=== PATIENT | female | born 1945 | race Caucasian/White ===

== ENCOUNTER → 2016-08-05 | Outpatient (REF) | payer MEDICARE | LOC: M LABDRAW1 11:34 | PROVIDERS: ATTEND Psychiatry & Neurology Neurology | DX: Z13.1 Encounter for screening for diabetes mellitus (principal); Z79.899 Other long term (current) drug therapy ==

== ENCOUNTER 2016-08-17 20:39 | Emergency (ER) | payer MEDICARE ==
[~2016-08-17] VITALS: Ht 152.4 cm; Wt 50.8 kg
[2016-08-17] MEDS ORDERED: PROBCAP14 PO (21:19)
[2016-08-17] MEDS ORDERED: SYNT75TA PO (21:19)
[2016-08-17] MEDS ORDERED: VITA-114 PO (21:19)
[2016-08-17] MEDS ORDERED: RANI1TAB6 PO (21:19)
[2016-08-17] MEDS ORDERED: TRAZ10TA GT (21:19)
[2016-08-17] MEDS ORDERED: COLA100C3 PO (21:19)
[2016-08-17] MEDS ORDERED: ASPI1TAB PO (21:19)
[2016-08-17] MEDS ORDERED: ATOR1TAB19 PO (21:19)
[2016-08-17] MEDS ORDERED: ALEN70SO PO (21:19)
[2016-08-17] MEDS ORDERED: FLUO20CA8 PO (21:19)
[2016-08-17] MEDS ORDERED: CALC600T57 PO (21:19)
[2016-08-17] MEDS ORDERED: MULT1TAB9 PO (21:19)
[2016-08-17] MEDS ORDERED: MOTR200T44 PO (21:19)
[2016-08-17 21:42] LABS: CALCIUM LEVEL 8.7 MG/DL (8.8-10.2); CREATININE FOR GFR 0.98 MG/DL (0.55-1.02); GLOMERULAR FILTRATION RATE 59.4 (>39)
[2016-08-17 21:42] LABS: ABG BASE EXCESS 3.5 (-2.0-2.0); ABG HCO3 26.2 MEQ/L (22.0-26.0); ABG PARTIAL PRESSURE CO2 33.7 mmHg (35.0-45.0); ABG PARTIAL PRESSURE O2 93.5 mmHg (75.0-100.0); ABG STANDARD HCO3 27.6 MEQ/L (22.0-26.0); ABG TOTAL CO2 27.3 MEQ/L (23.0-31.0); ABG pH (ARTERIAL) 7.509 UNITS (7.350-7.450)
[2016-08-17 21:43] LABS: BASO % 0.6 % (0.0-1.0); EOS # 0.2 K/mm3 (0.0-0.50); EOS % 3.2 % (0.0-3.0); LARGE UNSTAINED CELL # 0.2 K/mm3 (0.0-0.4); LARGE UNSTAINED CELL % 2.6 % (0.0-4.0); LYMPH # 1.9 K/mm3 (1.5-4.5); LYMPH % 29.1 % (24.0-44.0); MEAN CORPUSCULAR HEMOGLOBIN 31.9 pg (27.0-33.0); MEAN CORPUSCULAR HGB CONC 32.9 g/dl (32.0-36.5); MONO # 0.5 K/mm3 (0.0-0.8); MONO % 6.9 % (0.0-5.0); NEUTROPHILS # 3.7 K/mm3 (1.8-7.7); NEUTROPHILS % 57.6 % (36.0-66.0); PLATELET COUNT, AUTOMATED 173 k/mm3 (150-450); RED CELL DISTRIBUTION WIDTH 12.6 % (11.5-14.5); WHITE BLOOD COUNT 6.4 K/mm3 (4.0-10.0)
[2016-08-17 21:46] LABS: ADD MORPHOLOGY? YES
[2016-08-17 21:58] LABS: GIANT PLATELETS 1+
--- NOTE | 2016-08-17 22:10 | REPUSA ---
CT of the head Clinical history: Headache. Technique: Multiple axial CT images were obtained through the head without administration of contrast . Findings: The ventricles and sulci are symmetric bilaterally. There is no evidence of acute hemorrhag e or infarct. There is no midline shift, mass effect, or extra-axial fluid collection. The osseous st ructures are unremarkable. There is opacification of the left sphenoid sinus. The other visualized pa ranasal sinuses and mastoid air cells are clear. Impression: No acute intracranial hemorrhage or infarct. Left sphenoid sinusitis.
[2016-08-17] MEDS ORDERED: NS 1,000 ML IV ONE (23:00)
[2016-08-18 00:34] VITALS: BP 122/72
--- NOTE | 2016-08-18 08:24 | REP ---
Chest one-view HISTORY: Chest pain Comparison: 03/21/2011 The lungs are clear. The heart is normal in size. The pulmonary vasculature is normal in appearance. Impression: No acute disease. Signed by Leodan Vora MD 08/18/2016 08:16 A
== END 2016-08-18 00:35 | disposition home or self-care (01) ==
LOC: M ED 21:46
DX: E86.0 Dehydration (principal); J96.12 Chronic respiratory failure with hypercapnia

== ENCOUNTER → 2016-09-13 | Day surgery (SDC) | payer MEDICARE ==
[~2016-09-13] VITALS: Ht 152.4 cm; Wt 50.8 kg
[~2016-09-13] MED LIST: ALEN70SO PO; ALEV220T26 PO; ASPI1TAB PO; ATOR1TAB19 PO; CALC600T57 PO; CETACAINE SPRAY 20GM (FLOOR STOCK) As Ordered ONE; COLA100C3 PO; FLUO20CA8 PO; FLUO40CA PO; LIDOCAINE 2% INJ 100 MG/5 ML SDV (FOR ANES.) As Ordered ONE; LR 1,000 ML IV SCH; MOTR200T44 PO; MULT1TAB9 PO; PROBCAP14 PO; PROPOFOL 200 MG/20 ML VIAL As Ordered ONE; RANI1TAB6 PO; SYNT75TA PO; TRAZ10TA PO; VITA-114 PO; VITA100037 PO
[2016-09-13 14:27] VITALS: BP 113/56
--- NOTE | 2016-09-13 14:35 | T-ECHO ---
DATE OF PROCEDURE: 09/13/2016 PREPROCEDURE DIAGNOSIS: Patent loja ovale, transient cerebral ischemia, unspecified. POSTPROCEDURE DIAGNOSIS: Patent loja ovale, transient cerebral ischemia, unspecified. FINDINGS: Small patent foramen ovale. PROCEDURE: Transesophageal echocardiogram (ANTHONY) with saline contrast IV times three with Valsalva maneuver release. SURGEON: Lobo Rand MD DRIER BELT CONVEYOR: None. ANESTHESIA: Propofol as administered by the SUPERVISOR BRAIDING. COMPLICATIONS: None. PROCEDURE DESCRIPTION: After the patient received adequate sedation with propofol IV and after receiving Cetacaine spray to the back of the pharynx, the transesophageal echocardiogram probe (Sabina phased arrayed 2D multiplane probe) was placed into the esophagus by Dr. Rand without difficulty. Rhythm was sinus. The left and right ventricles appeared normal in size and systolic function and without regional wall motion abnormalities. Aortic valve was three-cuspid and was structurally and functionally normal. Mitral leaflets were structurally and functionally normal. Mild mitral regurgitation within normal limits of specimen. The pulmonic valve was normal. Trace pulmonic regurgitation. Tricuspid leaflets were structurally and functionally normal. No tricuspid regurgitation was identified. The region of the inferior atrial septum was high suspicious for presence of a patent foramen ovale, even though no color flow Doppler could be seen within the PFO itself. With saline contrast IV times three with Valsalva maneuver release, I was able to demonstrate on the last injection that there was indeed a small patent foramen ovale with a very small amount of saline contrast bubbles causing the PFO with Valsalva maneuver release from the right atrium to the left atrium via the PFO. No pericardial effusion. The distal aortic arch and descending thoracic aorta were visualized and showed at most mild intimal thickening, but no coarse atheroma. CONCLUSIONS: 1. Small patent foramen ovale with demonstration of a small amount of saline contrast shunting of saline contrast with Valsalva maneuver release from the left atrium into the right atrium via the PFO. 2. Otherwise, normal transesophageal echocardiogram (ANTHONY).
== END | disposition home or self-care (01) ==
LOC: M SDC 10:26
PROVIDERS: ATTEND Internal Medicine Cardiovascular Disease
DX: Q21.1 Atrial septal defect (principal); G45.9 Transient cerebral ischemic attack, unspecified; E03.9 Hypothyroidism, unspecified; E78.00 Pure hypercholesterolemia, unspecified; R01.1 Cardiac murmur, unspecified; K21.9 Gastro-esophageal reflux disease without esophagitis; R23.3 Spontaneous ecchymoses; R29.898 Other symptoms and signs involving the musculoskeletal system; M12.9 Arthropathy, unspecified; M51.26 Other intervertebral disc displacement, lumbar region; M81.0 Age-related osteoporosis without current pathological fracture; F32.9 Major depressive disorder, single episode, unspecified; R06.02 Shortness of breath; Z91.013 Allergy to seafood; Z88.5 Allergy status to narcotic agent; Z88.2 Allergy status to sulfonamides; Z79.899 Other long term (current) drug therapy; Z79.82 Long term (current) use of aspirin; Z86.73 Personal history of transient ischemic attack (TIA), and cerebral infarction without residual deficits; Z90.710 Acquired absence of both cervix and uterus; Z87.891 Personal history of nicotine dependence; Z87.81 Personal history of (healed) traumatic fracture

== ENCOUNTER 2016-11-04 21:30 | Emergency (ER) | payer MEDICARE ==
[~2016-11-04] VITALS: Ht 152.4 cm; Wt 112.0 kg
[~2016-11-04 21:30] MED LIST changes: -CETACAINE SPRAY 20GM (FLOOR STOCK) As Ordered ONE; -COLA100C3 PO; +COLA100C5 PO; -LIDOCAINE 2% INJ 100 MG/5 ML SDV (FOR ANES.) As Ordered ONE; -LR 1,000 ML IV SCH; -PROPOFOL 200 MG/20 ML VIAL As Ordered ONE; -VITA100037 PO; +VITA100067 PO
[2016-11-04 23:04] LABS: BASO # 0.1 K/mm3 (0.0-0.2); BASO % 1.1 % (0.0-1.0); EOS # 0.2 K/mm3 (0.0-0.50); EOS % 2.3 % (0.0-3.0); LARGE UNSTAINED CELL # 0.2 K/mm3 (0.0-0.4); LYMPH # 1.3 K/mm3 (1.5-4.5); LYMPH % 18.2 % (24.0-44.0); MEAN CORPUSCULAR HEMOGLOBIN 31.1 pg (27.0-33.0); MEAN CORPUSCULAR HGB CONC 32.8 g/dl (32.0-36.5); MEAN CORPUSCULAR VOLUME 94.8 fl (80.0-96.0); MONO # 0.6 K/mm3 (0.0-0.8); MONO % 8.1 % (0.0-5.0); NEUTROPHILS # 4.7 K/mm3 (1.8-7.7); NEUTROPHILS % 67.3 % (36.0-66.0); PLATELET COUNT, AUTOMATED 170 k/mm3 (150-450); RED CELL DISTRIBUTION WIDTH 12.2 % (11.5-14.5); WHITE BLOOD COUNT 6.9 K/mm3 (4.0-10.0)
[2016-11-04 23:06] LABS: INR 0.95
[2016-11-04 23:14] LABS: ANION GAP 8 MEQ/L (8-16); BLOOD UREA NITROGEN 18 MG/DL (7-18); CALCIUM LEVEL 8.7 MG/DL (8.8-10.2); CARBON DIOXIDE LEVEL 28 MEQ/L (21-32); CHLORIDE LEVEL 101 MEQ/L (98-107); CREATININE FOR GFR 0.95 MG/DL (0.55-1.02); GLOMERULAR FILTRATION RATE > 60.0 (>39); GLUCOSE, FASTING 88 MG/DL (83-110); POTASSIUM SERUM 3.9 MEQ/L (3.5-5.1); SODIUM LEVEL 137 MEQ/L (136-145)
--- NOTE | 2016-11-04 23:20 | REPUSA ---
CT of the head Clinical history: Headache. Comparison: 08/17/2016. Technique: Multiple axial CT images were obtained through the head without administration of contrast . Findings: The ventricles and sulci are symmetric bilaterally. There is no evidence of acute hemorrhag e or infarct. There is no midline shift, mass effect, or extra-axial fluid collection. The osseous st ructures are unremarkable. The visualized paranasal sinuses and mastoid air cells are clear. Impression: Negative study.
--- NOTE | 2016-11-04 23:50 | REPUSA ---
Clinicaly History: Atherosclerosis. Findings: Real-Time carotid duplex ultrasound with color Doppler flow was performed. Normal color Dop pler flow and arterial waveforms are noted. Mild atherosclerotic plaque is seen in the region of the carotid bulbs bilaterally. No elevated velocities are seen however. Antegrade blood flow is seen in t he vertebral arteries bilaterally. There is no evidence of subclavian steal. The right ICA/CCA ratio measures 0.87, and the left measures 0.90. Impression: No evidence of hemodynamically significant stenosis in the carotid arterial system bilate rally. Mild atherosclerotic plaque is seen in the region of the carotid bulbs bilaterally.
[2016-11-05 01:16] VITALS: BP 148/65
== END 2016-11-05 01:10 | disposition home or self-care (01) ==
LOC: M ED 21:30
DX: R51 Headache (principal); Z86.73 Personal history of transient ischemic attack (TIA), and cerebral infarction without residual deficits; Z88.2 Allergy status to sulfonamides; Z88.6 Allergy status to analgesic agent; Z88.5 Allergy status to narcotic agent; Z91.013 Allergy to seafood; Z79.82 Long term (current) use of aspirin; Z79.899 Other long term (current) drug therapy

== ENCOUNTER → 2016-11-28 | Outpatient (REF) | payer MEDICARE ==
[~2016-11-28] MED LIST changes: +FISH1000 PO; +PANT40TA2 PO; +PLAV1TAB2 PO; +SUCR1TA PO; +VITMTA PO
[2016-11-28 12:21] LABS: BASO % 1.1 % (0.0-1.0); EOS # 0.2 K/mm3 (0.0-0.50); LARGE UNSTAINED CELL # 0.1 K/mm3 (0.0-0.4); LARGE UNSTAINED CELL % 1.9 % (0.0-4.0); LYMPH % 24.9 % (24.0-44.0); MEAN CORPUSCULAR HEMOGLOBIN 31.2 pg (27.0-33.0); MEAN CORPUSCULAR HGB CONC 32.6 g/dl (32.0-36.5); MEAN CORPUSCULAR VOLUME 95.7 fl (80.0-96.0); MONO # 0.3 K/mm3 (0.0-0.8); MONO % 7.6 % (0.0-5.0); NEUTROPHILS # 2.3 K/mm3 (1.8-7.7); NEUTROPHILS % 60.5 % (36.0-66.0); PLATELET COUNT, AUTOMATED 154 k/mm3 (150-450); RED CELL DISTRIBUTION WIDTH 12.7 % (11.5-14.5); WHITE BLOOD COUNT 3.7 K/mm3 (4.0-10.0)
[2016-11-28 12:23] LABS: ADD MORPHOLOGY? YES
[2016-11-28 12:38] LABS: ANION GAP 7 MEQ/L (8-16); BLOOD UREA NITROGEN 25 MG/DL (7-18); CALCIUM LEVEL 9.2 MG/DL (8.8-10.2); CARBON DIOXIDE LEVEL 29 MEQ/L (21-32); CHLORIDE LEVEL 107 MEQ/L (98-107); CREATININE FOR GFR 0.91 MG/DL (0.55-1.02); GLOMERULAR FILTRATION RATE > 60.0 (>39); GLUCOSE, FASTING 87 MG/DL (83-110); POTASSIUM SERUM 4.5 MEQ/L (3.5-5.1); SODIUM LEVEL 143 MEQ/L (136-145)
== END ==
LOC: M LABDRAW1 11:48
PROVIDERS: ATTEND Internal Medicine Cardiovascular Disease
DX: Q21.1 Atrial septal defect (principal); G45.9 Transient cerebral ischemic attack, unspecified

== ENCOUNTER 2016-12-16 14:30 | Inpatient (IN) | payer MEDICARE ==
[~2016-12-16] VITALS: Ht 152.4 cm; Wt 51.4 kg
[~2016-12-16 14:30] MED LIST changes: -FISH1000 PO; -PANT40TA2 PO; -PLAV1TAB2 PO; -SUCR1TA PO; -VITMTA PO
[2016-12-16] MEDS ORDERED: PLAV1TAB2 PO (14:51)
[2016-12-16] MEDS ORDERED: FISH1000 PO (14:51)
[2016-12-16] MEDS ORDERED: NS 1,000 ML IV SCH ×2 (15:12→21:30)
[2016-12-16] MEDS ORDERED: PANTOPRAZOLE 40MG INJ (PROTONIX) (C9113) IV ONE (15:15)
[2016-12-16 15:33] LABS: BASO % 0.7 % (0.0-1.0); EOS # 0.2 K/mm3 (0.0-0.50); EOS % 3.5 % (0.0-3.0); LARGE UNSTAINED CELL # 0.2 K/mm3 (0.0-0.4); LARGE UNSTAINED CELL % 3.1 % (0.0-4.0); LYMPH # 1.4 K/mm3 (1.5-4.5); LYMPH % 27.5 % (24.0-44.0); MEAN CORPUSCULAR HEMOGLOBIN 30.9 pg (27.0-33.0); MEAN CORPUSCULAR HGB CONC 33.1 g/dl (32.0-36.5); MEAN CORPUSCULAR VOLUME 93.2 fl (80.0-96.0); MONO # 0.4 K/mm3 (0.0-0.8); MONO % 7.7 % (0.0-5.0); NEUTROPHILS # 2.7 K/mm3 (1.8-7.7); NEUTROPHILS % 57.5 % (36.0-66.0); PLATELET COUNT, AUTOMATED 152 k/mm3 (150-450); RED CELL DISTRIBUTION WIDTH 12.8 % (11.5-14.5); WHITE BLOOD COUNT 4.7 K/mm3 (4.0-10.0)
[2016-12-16] MEDS: PANTOPRAZOLE SODIUM 40 MG in D5W MINI-BAG PLUS 50 ML IV SCH ×3 (15:52→20:56)
[2016-12-16 16:00] LABS: ALBUMIN/GLOBULIN RATIO 0.94 (1.00-1.93); ALKALINE PHOSPHATASE 58 U/L (45-117); ALT/SGPT 30 U/L (12-78); ANION GAP 8 MEQ/L (8-16); AST/SGOT 26 U/L (15-37); BILIRUBIN,DIRECT < 0.1 MG/DL (0.0-0.2); BLOOD UREA NITROGEN 24 MG/DL (7-18); CALCIUM LEVEL 8.2 MG/DL (8.8-10.2); CARBON DIOXIDE LEVEL 26 MEQ/L (21-32); CHLORIDE LEVEL 107 MEQ/L (98-107); CREATININE FOR GFR 0.86 MG/DL (0.55-1.02); GLOMERULAR FILTRATION RATE > 60.0 (>39); GLUCOSE, FASTING 91 MG/DL (83-110); POTASSIUM SERUM 4.3 MEQ/L (3.5-5.1); SODIUM LEVEL 141 MEQ/L (136-145); TOTAL PROTEIN 6.2 GM/DL (6.4-8.2)
[2016-12-16 16:03] LABS: BILIRUBIN,TOTAL 0.2 MG/DL (0.2-1.0)
[2016-12-16] MEDS ORDERED: VITMTA PO (17:03)
[2016-12-16] MEDS ORDERED: DOCUSATE SODIUM 100 MG CAP PO PRN (21:30)
[2016-12-16] MEDS ORDERED: ACETAMINOPHEN TAB 650MG DOSE (2X325MG) PO PRN (21:45)
[2016-12-16] MEDS ORDERED: ONDANSETRON 4MG/2ML VIAL (J2405) IV PRN (21:45)
[2016-12-16] MEDS: SUCRALFATE 1 GM TAB PO SCH (22:33)
[2016-12-16] MEDS: ATORVASTATIN 10 MG TAB PO SCH (22:33)
[2016-12-16] MEDS: traZODone 100 MG TAB PO SCH (22:33)
[2016-12-17] VITALS (9 sets, daily range): BP systolic 107–143; BP diastolic 51–65
[2016-12-17] MEDS: PANTOPRAZOLE SODIUM 40 MG in D5W MINI-BAG PLUS 50 ML IV SCH ×5 (00:12→22:05)
[2016-12-17 03:27] LABS: MEAN CORPUSCULAR HEMOGLOBIN 31.8 pg (27.0-33.0); MEAN CORPUSCULAR HGB CONC 34.2 g/dl (32.0-36.5); RED CELL DISTRIBUTION WIDTH 13.2 % (11.5-14.5); WHITE BLOOD COUNT 4.9 K/mm3 (4.0-10.0)
[2016-12-17 04:01] LABS: ALBUMIN 2.9 GM/DL (3.2-5.2); ALBUMIN/GLOBULIN RATIO 0.97 (1.00-1.93); ALKALINE PHOSPHATASE 49 U/L (45-117); ALT/SGPT 29 U/L (12-78); ANION GAP 6 MEQ/L (8-16); AST/SGOT 25 U/L (15-37); BILIRUBIN,TOTAL 0.3 MG/DL (0.2-1.0); BLOOD UREA NITROGEN 15 MG/DL (7-18); CALCIUM LEVEL 7.6 MG/DL (8.8-10.2); CARBON DIOXIDE LEVEL 26 MEQ/L (21-32); CHLORIDE LEVEL 114 MEQ/L (98-107); CREATININE FOR GFR 0.85 MG/DL (0.55-1.02); GLOMERULAR FILTRATION RATE > 60.0 (>39); GLUCOSE, FASTING 84 MG/DL (83-110); MAGNESIUM LEVEL 1.9 MG/DL (1.8-2.4); SODIUM LEVEL 146 MEQ/L (136-145); T UPTAKE 40 % (30-39); THYROXINE (T4) 7.6 UG/DL (4.5-12.0); TOTAL PROTEIN 5.9 GM/DL (6.4-8.2)
[2016-12-17] MEDS: LEVOTHYROXINE 75MCG TABLET (0.075MG) PO SCH (06:07)
[2016-12-17] MEDS: SUCRALFATE 1 GM TAB PO SCH ×3 (06:07→22:04)
--- NOTE | 2016-12-17 07:39 | HPE ---
DATE OF ADMISSION: 12/16/2016 PRIMARY CARE PROVIDER: Dr. Fisher GENERAL SURGEON: Dr Taylor, covered by Dr. Winn NEUROLOGIST: Dr. Leon SUGAR GRINDER: Dr. Rand HISTORY OF PRESENT ILLNESS: This is a 71-year-old female patient with underlying medical history of transient ischemic attack (TIA) in April 2016 that was initially thought to be questionable patent foramen ovale, but after cardiac catheterization was found to be negative. The patient on aspirin and Plavix. Also underlying medical history of hypothyroidism, depression, vitamin D deficiency, genital herpes, thrombocytopenia, external hemorrhoids, constipation, osteoarthritis. The patient reported for the past three days has been having intermittent epigastric pain. Furthermore, for the past three days, the patient has a total of two episodes of large bowel movements that are black and with melena and reported lightheadedness and weak. Subsequently presented to the emergency room and found to be have anemia with hemoglobin of 8.6, baseline of 13.1. The patient also reported carotid artery disease. Subsequently the patient was consented for transfusion and transfused one unit of packed red blood cells (PRBC). The patient remained hemodynamically stable. IV fluids were given. Denies history of congestive heart failure (CHF). Only one episode of dark bowel movement over the last 24 hours. ALLERGIES: - CRABS - HYDROCODONE - SULFA DRUGS PAST MEDICAL HISTORY: 1. Hypothyroidism. 2. Depression. 3. Vitamin D deficiency. 4. Genital herpes. 5. Thrombocytopenia. 6. TIA. 7. External hemorrhoids. 8. Constipation. 9. Osteoarthritis. 10. Carotid artery stenosis. PAST SURGICAL HISTORY: 1. Ovarian cyst. 2. Hysterectomy. 3. Bone graft. 4. Juan placement in the leg secondary to fracture with juan removal and then replaced. 5. Appendectomy. 6. Lumpectomy of the breast. FAMILY HISTORY: Father with congestive heart failure, age 81, and diabetes. Mother with breast cancer. SOCIAL HISTORY: The patient denies history of smoking or excessive alcohol use. REVIEW OF SYSTEMS: Reported epigastric abdominal pain and lightheadedness. All other review of systems were negative. HOME MEDICATIONS: - alendronate 70 mg by mouth weekly - aspirin 81 mg by mouth daily - Lipitor 10 mg by mouth every evening - calcium with vitamin D by mouth twice a day - Plavix 75 mg by mouth daily - Colace 100 mg by mouth daily as needed - fish oil one tablet by mouth daily - fluoxetine 60 mg by mouth daily - Synthroid 75 mcg by mouth daily - multivitamin by mouth daily - trazodone 100 mg by mouth at bedtime - vitamin D 2000 units by mouth daily PHYSICAL EXAMINATION: VITAL SIGNS: Temperature 97.8. Pulse 69. Respirations 16. Blood pressure 111/55. Pulse oximetry 97% on room air. GENERAL: Patient alert and oriented times three in no acute distress. HEENT: Normocephalic, atraumatic. PULMONARY: Bilateral clear to auscultation. CARDIAC: Regular rate and rhythm. Normal S1, S2. ABDOMEN: Soft. Nontender. Positive bowel sounds. EXTREMITIES: No clubbing, cyanosis or edema. NEUROLOGIC: No focal deficits. LABORATORIES: WBC 4.7, hemoglobin/hematocrit 8.6/26, platelets 152. Chemistries: Sodium 141, potassium 4.3, chloride 107, bicarbonate 26, BUN 24, creatinine 0.86. Cardiac enzymes negative times one. Lipase negative. ASSESSMENT AND PLAN: This is a 71-year-old female patient with underlying medical history of TIA, carotid artery stenosis, hypothyroidism, depression, vitamin D deficiency genital herpes, thrombocytopenia, constipation, external hemorrhoids, and osteoarthritis admitted for acute blood loss anemia secondary to upper GI bleed. PROBLEMS: 1. Acute blood loss anemia secondary to upper GI bleed, likely secondary to gastric ulcer. Consulted general surgery Dr. Winn. Protonix drip. Transfuse one unit of PRBC. Serial H and H. Holding aspirin and Plavix. Transfuse as needed. Monitor H and H. Orthostatic vital signs. IV fluid for gentle hydration. Clear liquid diet. Further management as per general surgery. Carafate. 2. Recent history of TIA. Holding aspirin and Plavix given patient with acute blood loss anemia. Will monitor closely. Continue statin. 3. Carotid artery stenosis. Recent carotid Doppler done. Consider outpatient referral for vascular surgery. Continue statin. Holding aspirin and Plavix given acute blood loss anemia. 4. Hypothyroidism. Continue Synthroid. Followup thyroid panel. 5. Depression. Continue current medications. 6. Osteoarthritis. Supportive care. Pain medication is ordered. 7. Dyslipidemia. Continue statin. 8. Constipation. Continue current medication. 9. Epigastric pain, likely secondary to gastric ulcer. Carafate and Protonix. General surgery consulted. Followup H and H. 10. Deep vein thrombosis (DVT) prophylaxis. Sequential compression device. DISPOSITION: Pending surgical consultation. Monitor H and H. Clinically improving.
[2016-12-17] MEDS: FLUoxetine 20 MG CAP PO SCH (08:40)
[2016-12-17] MEDS: VITAMIN D 1,000 INTERNATIONAL UNITS TABLET PO SCH (08:40)
[2016-12-17] MEDS: MULTIVITAMINS/MINERALS THERAP 1 TAB PO SCH (08:40)
[2016-12-17] MEDS: SENOKOT S TAB PO SCH ×2 (08:41→22:06)
[2016-12-17] MEDS: OMEGA-3 1050MG CAPSULE PO SCH (08:41)
--- NOTE | 2016-12-17 10:01 | ECGEPIP ---
Stationary ECG Study 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 Somewhat slow precordial R-wave progression; rule out prior septal injury. Nonspecific ST/T-wave abnormalities. No prior tracing for comparison. Clinical correlation advised. Electronically Signed On 12-17-2016 10:01:45 EDT by Wayne Spicer
--- NOTE | 2016-12-17 12:27 | IPNPDOC ---
Subjective Date Seen The patient was seen on 12/17/16. Subjective Chief Complaint/HPI The patient is a 71-year-old female admitted with a reason for visit of Upper Gi Bleed. Events since last encounter No dizziness this am , no light headedness , did not have any bowel movement since yesterday morning , no vomiting , no abdominal pain. Objective Physical Examination General Exam: Positive: Alert, Cooperative, No Acute Distress Eye Exam: Positive: PERRLA, Conjunctiva & lids normal, EOMI, Negative: Sclera icteric ENT Exam: Positive: Atraumatic, Mucous membr. moist/pink, Pharynx Normal Neck Exam: Positive: Supple, Other (left carotid bruit present), Negative: JVD, thyromegaly Chest Exam: Positive: Clear to auscultation, Normal air movement Heart Exam: Positive: Rate Normal, Regular Rhythm, Normal S1, Normal S2, Murmurs, Negative: Rubs Telemetry: Positive: No significant arrhythmia Abdomen Exam: Positive: Normal bowel sounds, Soft, Negative: Tenderness, Hepatospenomegaly Extremity Exam: Positive: Normal pulses, Negative: Clubbing, Cyanosis, Edema Skin Exam: Positive: Nl turgor and temperature, Negative: Rash, Breakdown Assessment /Plan Problems (1) GIB (gastrointestinal bleeding) Status: Acute Problem Text: possible related to plavix and ibuprofen . hh stable appropriate response to 1 unit of prbc transfusion. Seems like bleeding has stopped will continue with ppi , advance diet. monitor hh. stop ivf. Has been seen by Dr Winn . (2) Acute blood loss anemia Status: Acute Problem Text: from gib , received 1 unit of PRBC. continue to monitor HH (3) Patent foramen ovale Status: Chronic Problem Text: Had cardiac cath done by Dr Tatum on december 03 and was told that there was no "hole" (4) History of TIA (transient ischemic attack) Status: Chronic (5) Hyperlipidemia Status: Chronic Problem Text: continue statin (6) Hypothyroid Status: Chronic (7) Depression Status: Chronic (8) Chronic shoulder pain Status: Chronic (9) Symptomatic anemia Status: Acute Problem Text: HH dropped by 5 points from 1 month ago received 1 unit of prbc . (10) Carotid artery bruit Status: Chronic Problem Text: on the left. Has some carotid obstruction but was told it does not need surgery at this point. Plan/VTE VTE Prophylaxis Ordered?: Yes VS, I&O, 24H, [facility] Vital Signs/I&O Vital Signs Date Time Temp Pulse Resp B/P (MAP) Pulse Ox O2 Delivery O2 Flow Rate FiO2 12/17/16 08:00 98.5 66 18 107/53 (71) 96 Room Air I&O- Last 24 Hours up to 6 AM 12/17/16 05:59 Intake Total 525 ml Output Total 200 ml Balance 325 ml Laboratory Data 24H LABS Laboratory Tests 2 12/16/16 15:16: White Blood Count 4.7, Red Blood Count 2.79L, Hemoglobin 8.6L, Hematocrit 26.0L , Mean Corpuscular Volume 93.2, Mean Corpuscular Hemoglobin 30.9, Mean Corpuscular Hemoglobin Concent 33.1, Red Cell Distribution Width 12.8, Platelet Count 152, Neutrophils (%) (Auto) 57.5, Lymphocytes (%) (Auto) 27.5, Monocytes ( %) (Auto) 7.7H, Eosinophils (%) (Auto) 3.5H, Basophils (%) (Auto) 0.7, Neutrophils # (Auto) 2.7, Lymphocytes # (Auto) 1.4L, Monocytes # (Auto) 0.4, Eosinophils # (Auto) 0.2, Basophils # (Auto) 0.0, Large Unclassified Cells % 3.1 , Large Unclassified Cells # 0.2, Prothrombin Time 13.3, Prothromb Time International Ratio 1.00, Activated Partial Thromboplast Time 27.9, Anion Gap 8 , Glomerular Filtration Rate > 60.0, Calcium Level 8.2L, Aspartate Amino Transf (AST/SGOT) 26, Alanine Aminotransferase (ALT/SGPT) 30, Alkaline Phosphatase 58, Total Bilirubin 0.2, Direct Bilirubin < 0.1, Total Creatine Kinase 57, Creatine Kinase MB 1.2, Creatine Kinase MB Relative Index 2.10, Troponin I < 0.02, Total Protein 6.2L, Albumin 3.0L, Albumin/Globulin Ratio 0.94L, Lipase 386 12/17/16 03:11: Anion Gap 6L, Glomerular Filtration Rate > 60.0, Calcium Level 7.6L, Aspartate Amino Transf (AST/SGOT) 25, Alanine Aminotransferase (ALT/SGPT) 29, Alkaline Phosphatase 49, Total Bilirubin 0.3, Total Protein 5.9L, Albumin 2.9L, Albumin/ Globulin Ratio 0.97L, Blood Urea Nitrogen 15, Creatinine 0.85, Sodium Level 146H , Potassium Level 4.0, Chloride Level 114H, Carbon Dioxide Level 26, Magnesium Level 1.9, Thyroid Stimulating Hormone (TSH) 6.830H, Free Thyroxine Index 3.0, Thyroxine (T4) 7.6, Triiodothyronine (T3) Uptake 40H CBC/BMP Laboratory Tests 12/16/16 15:16 Red Blood Count 2.79 L, Mean Corpuscular Volume 93.2, Mean Corpuscular Hemoglobin 30.9, Mean Corpuscular Hemoglobin Concent 33.1, Red Cell Distribution Width 12.8, Neutrophils (%) (Auto) 57.5, Lymphocytes (%) (Auto) 27.5, Monocytes (%) (Auto) 7.7 H, Eosinophils (%) (Auto) 3.5 H, Basophils (%) ( Auto) 0.7, Neutrophils # (Auto) 2.7, Lymphocytes # (Auto) 1.4 L, Monocytes # ( Auto) 0.4, Eosinophils # (Auto) 0.2, Basophils # (Auto) 0.0 12/16/16 21:45 12/17/16 03:11 Red Blood Count 3.41 L, Mean Corpuscular Volume 93.0, Mean Corpuscular Hemoglobin 31.8, Mean Corpuscular Hemoglobin Concent 34.2, Red Cell Distribution Width 13.2, Calcium Level 7.6 L, Aspartate Amino Transf (AST/SGOT) 25, Alanine Aminotransferase (ALT/SGPT) 29, Alkaline Phosphatase 49, Total Bilirubin 0.3, Total Protein 5.9 L, Albumin 2.9 L 12/17/16 08:36 MONTY CORBIN MD Dec 17, 2016 12:27
--- NOTE | 2016-12-17 19:17 | ECGEPIP ---
Stationary ECG Study [facility] - [facility] Test Date: 2016-12-16 Pat Name: BILLIE BRAVO Department: Room: - Gender: F Character Impersonator: shiela : 1945 Requested By: Shahab Knott Order Number: [id number] Reading MD: William Ch Measurements Intervals [place] Rate: 61 P: 66 [place]: 143 QRS: -9 QRSD: 76 T: 34 QT: 426 QTc: 430 Interpretive Statements SINUS RHYTHM LEFTWARD AXIS DELAYED R WAVE PROGRESSION NO OLD ECG FOR COMPARISON Electronically Signed On 12-17-2016 19:16:55 EDT by William Ch
[2016-12-17] MEDS: traZODone 100 MG TAB PO SCH (22:04)
[2016-12-17] MEDS: ATORVASTATIN 10 MG TAB PO SCH (22:04)
[2016-12-18 04:00] VITALS: BP 119/56
[2016-12-18 04:15] LABS: MEAN CORPUSCULAR HEMOGLOBIN 31.5 pg (27.0-33.0); MEAN CORPUSCULAR HGB CONC 34.2 g/dl (32.0-36.5); MEAN CORPUSCULAR VOLUME 92.3 fl (80.0-96.0); RED CELL DISTRIBUTION WIDTH 13.6 % (11.5-14.5); WHITE BLOOD COUNT 5.2 K/mm3 (4.0-10.0)
[2016-12-18 04:39] LABS: ANION GAP 8 MEQ/L (8-16); BLOOD UREA NITROGEN 11 MG/DL (7-18); CARBON DIOXIDE LEVEL 25 MEQ/L (21-32); CHLORIDE LEVEL 115 MEQ/L (98-107); CREATININE FOR GFR 0.77 MG/DL (0.55-1.02); GLOMERULAR FILTRATION RATE > 60.0 (>39); GLUCOSE, FASTING 87 MG/DL (83-110); POTASSIUM SERUM 3.7 MEQ/L (3.5-5.1); SODIUM LEVEL 148 MEQ/L (136-145)
[2016-12-18 04:40] LABS: ALBUMIN 2.9 GM/DL (3.2-5.2); ALKALINE PHOSPHATASE 49 U/L (45-117); ALT/SGPT 30 U/L (12-78); AST/SGOT 27 U/L (15-37); BILIRUBIN,TOTAL 0.2 MG/DL (0.2-1.0); CALCIUM LEVEL 7.9 MG/DL (8.8-10.2); MAGNESIUM LEVEL 2.4 MG/DL (1.8-2.4); TOTAL PROTEIN 5.8 GM/DL (6.4-8.2)
[2016-12-18] MEDS: LEVOTHYROXINE 75MCG TABLET (0.075MG) PO SCH (05:50)
[2016-12-18] MEDS: SUCRALFATE 1 GM TAB PO SCH (05:50)
[2016-12-18] MEDS: PANTOPRAZOLE SODIUM 40 MG in D5W MINI-BAG PLUS 50 ML IV SCH ×2 (05:50→08:58)
[2016-12-18 08:00] VITALS: BP 115/57
[2016-12-18] MEDS: OMEGA-3 1050MG CAPSULE PO SCH (08:58)
[2016-12-18] MEDS: SENOKOT S TAB PO SCH (08:58)
[2016-12-18] MEDS: FLUoxetine 20 MG CAP PO SCH (08:59)
[2016-12-18] MEDS: VITAMIN D 1,000 INTERNATIONAL UNITS TABLET PO SCH (08:59)
[2016-12-18] MEDS: MULTIVITAMINS/MINERALS THERAP 1 TAB PO SCH (08:59)
[2016-12-18] MEDS ORDERED: INFLUENZA VIRUS VACCINE HIGH DOSE 0.5 ML SYRINGE (90662) IM ONE (09:00)
[2016-12-18] MEDS ORDERED: PANT40TA2 PO (10:49)
[2016-12-18] MEDS ORDERED: SUCR1TA PO (10:49)
--- NOTE | 2016-12-18 12:23 | DSES ---
DATE OF ADMISSION: 12/16/2016 DATE OF DISCHARGE: 12/18/2016 [facility] DIS[facility] DIAGNOSES: 1. Gastrointestinal (GI) bleeding thought to be due to Plavix use and ibuprofen use with possible acute gastritis. 2. Acute blood loss anemia requiring one unit of blood transfusion. 3. Hyperlipidemia. 4. Hypothyroid. 5. Depression. 6. Symptomatic anemia. 7. Chronic shoulder pain. 8. History of transient ischemic attack (TIA). 9. Probable foramen ovale. However, cardiac catheterization did not show any patency. 10. Presence of carotid artery bruit. DISCHARGE MEDICATIONS: - pantoprazole 40 mg by mouth twice a day - sucralfate 1 gram by mouth every eight hours - alendronate 70 mg by mouth every week - aspirin 81 mg by mouth daily - atorvastatin 10 mg by mouth daily - calcium with vitamin D3 one tablet by mouth twice a day - Colace 500 mg by mouth daily - fish oil 1000 mg by mouth daily - fluoxetine 60 mg by mouth daily - Synthroid 75 mcg by mouth daily - multivitamin one tablet by mouth daily - trazodone 100 mg by mouth at bedtime - vitamin D 2000 units by mouth daily HOSPITAL COURSE: This is a 71-year-old female who presented to the hospital with 3-4 days history of lightheadedness, dizziness, progressively increasing shortness of breath, weakness and tiredness. The patient was found to have a hemoglobin of 8.6 which was about five points lower to a value which was done one month prior. The patient also had complained of black colored stool for one or two days. Hemoccult was positive. The patient was diagnosed with gastrointestinal bleeding and was admitted. As per the patient, about three weeks prior, she was started on Plavix which was a new medication for her and for the past one week, she was having headaches so she has been taking about 600 mg of ibuprofen everyday. She also had mild epigastric discomfort. She received one unit of blood transfusion with appropriate response in blood count. The patient's hemoglobin and hematocrit was checked over the next 24 hours which remained stable. The patient did have one semi-solid bowel movement but no lulú melena or hematochezia. The patient was started on a regular diet which she tolerated well and she was then switched from IV pantoprazole to oral pantoprazole. At present, the patient does not have any complaints. Her symptoms have resolved. Vital signs are stable and she is functioning at her baseline. PHYSICAL EXAMINATION: VITAL SIGNS: Temperature 98.5, pulse 62, respiratory rate 18, blood pressure 115/57, pulse oximetry 97% on room air. GENERAL: The patient is awake, alert, and oriented times three, laying down in bed, in no acute distress. HEENT: Normocephalic, atraumatic. Moist mucous membranes. Anicteric eyes. CHEST: Clear to auscultation. CARDIOVASCULAR: S1, S2, regular. No rub, murmur, or gallop. ABDOMEN: Soft, nontender. Bowel sounds present. EXTREMITIES: No edema. LABORATORY DATA: WBC 5.2, hemoglobin 10.2, platelets 145. Sodium 148, potassium 3.8, chloride 115, bicarbonate 25, BUN 11, creatinine 0.7, glucose 87, calcium 7.9. Liver function tests are normal. TSH is 6.83. Coagulation studies are normal. DISPOSITION: The patient is discharged home in a stable condition. DISCHARGE INSTRUCTIONS: The patient is to followup with primary care provider in one week. Regular diet. Activity as tolerated.
--- NOTE | 2016-12-18 20:48 | CR ---
DATE OF CONSULTATION: 12/17/2016 CHIEF COMPLAINT: Gastrointestinal (GI) bleed. HISTORY OF PRESENT ILLNESS: Patient is a 71-year-old female with a history of recent TIA back in April who presents to the emergency room on aspirin and Plavix after having a couple episodes of large black bowel movements. She also has been slightly lightheaded and weak. She came into the emergency room and found to be anemic with a hemoglobin of 8.6 with a normal baseline of 13.1. She was given 1 unit of packed red blood cells and admitted to the floor and I was called to evaluate. Since admission to the hospital, she has not had any more bowel movements. Her hemoglobin has stabilized out after the 1 unit of blood and she denies any other problems. She has been using Motrin for the past week which is also new for her. Denies any other problems with acid reflux or heartburn. No previous upper endoscopy. No problems with nausea or vomiting or abdominal pain and no bright red blood in her stool. PAST MEDICAL HISTORY: Hypothyroidism, depression, TIA, thrombocytopenia, external hemorrhoids, constipation, osteoarthritis, carotid artery stenosis, vitamin D deficiency. PAST SURGICAL HISTORY: Ovarian cyst removal, hysterectomy, bone graft, fracture repair of the femur, appendectomy and a breast lumpectomy. ALLERGIES: HYDROCODONE and SULFA. MEDICATIONS: Please see medication reconciliation. SOCIAL HISTORY: Denies any drug, alcohol, or tobacco abuse. REVIEW OF SYSTEMS: Pertinent positives and negatives as stated in HPI. PHYSICAL EXAMINATION: General: Alert and oriented times three. No acute distress. Vital signs: Temperature 98.5, pulse 66, respirations 18, blood pressure 107/53, pulse oximetry 96% on room air. HEENT: Pupils equally round and reactive to light and accommodation. Heart: S1, S2, regular rate and rhythm. Lungs: Clear to auscultation bilaterally. Abdomen: Soft, nontender, nondistended. Bowel sounds positive. Extremities: No clubbing, cyanosis or edema. LABORATORY DATA: White count of 4.7, hemoglobin 8.6 on admission, up to 9.7 after 1 unit of blood, and up to 10.8 this morning. INR was 1, potassium 4.3, creatinine 0.86, magnesium 1.9. ASSESSMENT/PLAN: The patient is a 71-year-old female with a history of melanotic stools likely secondary to an upper GI bleed from gastritis versus gastric ulcer. Recommendation at this time is to continue with a PPI twice a day as well as Carafate. We will continue to monitor her during her hospital stay with serial hemoglobins and hematocrits. No need for upper endoscopy at this time since it would be just diagnostic rather than therapeutic and if she shows signs of continued bleeding and requires multiple transfusions then we will consider endoscopy at that time.
== END 2016-12-18 12:50 | disposition home or self-care (01) | DRG 813 ==
LOC: M ED 14:30 → M ED INP 21:32 → M PCU 23:58
PROVIDERS: ADMIT Hospitalist; ATTEND Internal Medicine Nephrology
PROC: 30233N1 Transfusion of Nonautologous Red Blood Cells into Peripheral Vein, Percutaneous Approach (ICD-10-PCS; principal; 2016-12-16)
DX: D68.32 Hemorrhagic disorder due to extrinsic circulating anticoagulants (principal); K29.01 Acute gastritis with bleeding; D62 Acute posthemorrhagic anemia; E78.5 Hyperlipidemia, unspecified; E03.9 Hypothyroidism, unspecified; R09.89 Other specified symptoms and signs involving the circulatory and respiratory systems; K59.00 Constipation, unspecified; F32.9 Major depressive disorder, single episode, unspecified; Z86.73 Personal history of transient ischemic attack (TIA), and cerebral infarction without residual deficits; Z79.82 Long term (current) use of aspirin; Z79.899 Other long term (current) drug therapy; Z79.02 Long term (current) use of antithrombotics/antiplatelets; Z88.2 Allergy status to sulfonamides; Z88.5 Allergy status to narcotic agent; Z91.013 Allergy to seafood; Z90.710 Acquired absence of both cervix and uterus; Z83.3 Family history of diabetes mellitus; Z80.3 Family history of malignant neoplasm of breast; Z82.49 Family history of ischemic heart disease and other diseases of the circulatory system; T45.515A Adverse effect of anticoagulants, initial encounter

== ENCOUNTER → 2017-01-02 | Outpatient (REF) | payer MEDICARE ==
[~2017-01-02] MED LIST changes: +FISH1000 PO; +PANT40TA2 PO; +PLAV1TAB2 PO; +SUCR1TA PO; +VITMTA PO
[2017-01-02 16:27] LABS: BASO % 0.7 % (0.0-1.0); EOS # 0.1 K/mm3 (0.0-0.50); EOS % 1.8 % (0.0-3.0); LARGE UNSTAINED CELL # 0.1 K/mm3 (0.0-0.4); LARGE UNSTAINED CELL % 2.4 % (0.0-4.0); LYMPH # 1.2 K/mm3 (1.5-4.5); LYMPH % 25.8 % (24.0-44.0); MEAN CORPUSCULAR HEMOGLOBIN 31.1 pg (27.0-33.0); MEAN CORPUSCULAR VOLUME 94.2 fl (80.0-96.0); MONO # 0.5 K/mm3 (0.0-0.8); MONO % 11.4 % (0.0-5.0); NEUTROPHILS # 2.4 K/mm3 (1.8-7.7); NEUTROPHILS % 57.9 % (36.0-66.0); PLATELET COUNT, AUTOMATED 183 k/mm3 (150-450); WHITE BLOOD COUNT 4.1 K/mm3 (4.0-10.0)
== END ==
LOC: M LABDRAW1 15:53
PROVIDERS: ATTEND Family Medicine
DX: K92.2 Gastrointestinal hemorrhage, unspecified (principal)

== ENCOUNTER → 2017-02-01 | Outpatient (REF) | payer MEDICARE | LOC: M LAB REF 12:28 | PROVIDERS: ATTEND Ophthalmology | DX: H02.834 Dermatochalasis of left upper eyelid (principal) ==

== ENCOUNTER → 2017-02-06 | Outpatient (REF) | payer MEDICARE ==
[2017-02-06 18:15] LABS: FOLATE > 24.0 NG/ML; VITAMIN B12 LEVEL 949 PG/ML
[2017-02-06 18:17] LABS: TOTAL PROTEIN 7.2 GM/DL (6.4-8.2)
[2017-02-07 11:43] LABS: ALBUMIN % 56.9 % (55.8-66.1); GAMMA GLOBULIN % 13.4 % (11.1-18.8)
[2017-02-15 00:06] LABS: SJOGREN'S ANTI SS-A <0.2 AI (0.0-0.9); SJOGREN'S ANTI SS-B <0.2 AI (0.0-0.9); VITAMIN E LEVEL 18.4 mg/L (6.5-21.5)
== END ==
LOC: M LABDRAW1 15:36
PROVIDERS: ATTEND Psychiatry & Neurology Neurology
DX: R51 Headache (principal); E11.9 Type 2 diabetes mellitus without complications

== ENCOUNTER → 2017-07-17 | Outpatient (REF) | payer MEDICARE ==
[2017-07-17 19:16] LABS: ANION GAP 3 MEQ/L (8-16); BLOOD UREA NITROGEN 20 MG/DL (7-18); CARBON DIOXIDE LEVEL 28 MEQ/L (21-32); CHLORIDE LEVEL 109 MEQ/L (98-107); CREATININE FOR GFR 0.86 MG/DL (0.55-1.30); GLOMERULAR FILTRATION RATE > 60.0 (>39); GLUCOSE, FASTING 81 MG/DL (70-100); POTASSIUM SERUM 4.4 MEQ/L (3.5-5.1); SODIUM LEVEL 140 MEQ/L (136-145)
[2017-07-17 19:20] LABS: HEMATOCRIT 39.9 % (36.0-47.0); HEMOGLOBIN 12.8 g/dl (12.0-15.5); MEAN CORPUSCULAR HEMOGLOBIN 30.3 pg (27.0-33.0); MEAN CORPUSCULAR HGB CONC 32.1 g/dl (32.0-36.5); MEAN CORPUSCULAR VOLUME 94.3 fl (80.0-96.0); PLATELET COUNT, AUTOMATED 171 10^3/uL (150-450); RED BLOOD COUNT 4.23 10^6/uL (4.00-5.40); WHITE BLOOD COUNT 5.7 10^3/uL (4.0-10.0)
== END ==
LOC: M LABDRAW1 15:20
DX: Z01.812 Encounter for preprocedural laboratory examination (principal); G57.61 Lesion of plantar nerve, right lower limb; G57.62 Lesion of plantar nerve, left lower limb
CPT/HCPCS: 80048

== ENCOUNTER 2017-08-16 08:24 | Day surgery (SDC) | payer MEDICARE ==
[2017-08-16] MEDS: LR 1,000 ML IV (09:20)
[2017-08-16] MEDS ORDERED: LIDOCAINE 2% INJ 100 MG/5 ML SDV (FOR ANES.) As Ordered (09:25)
[2017-08-16] MEDS ORDERED: PROPOFOL 200 MG/20 ML VIAL As Ordered (09:26)
[2017-08-16] MEDS ORDERED: fentaNYL 100 MCG/2 ML INJECTION (J3010) As Ordered (09:26)
[2017-08-16] MEDS ORDERED: KETOROLAC 60 MG/2 ML VIAL (J1885) As Ordered (09:26)
[2017-08-16] MEDS ORDERED: MIDAZOLAM INJ 2 MG/2 ML VIAL (J2250) As Ordered (09:26)
[2017-08-16] MEDS ORDERED: ONDANSETRON 4MG/2ML VIAL (J2405) As Ordered (09:26)
[2017-08-16] MEDS: dexameTHASONE 4 MG/ML 1ML VIAL (J1100) As Ordered ×2 (10:08→10:16)
[2017-08-16] MEDS: LIDOCAINE 1% MDV 20ML VIAL As Ordered (10:57)
[2017-08-16] MEDS: BUPIVACAINE HCL 0.5% 10 ML VIAL As Ordered (10:58)
== END 2017-08-16 12:45 | disposition home or self-care (01) ==
LOC: M SDC 08:24
DX: G57.63 Lesion of plantar nerve, bilateral lower limbs (principal); E03.9 Hypothyroidism, unspecified; K21.9 Gastro-esophageal reflux disease without esophagitis; Z79.82 Long term (current) use of aspirin; Z79.899 Other long term (current) drug therapy; Z88.2 Allergy status to sulfonamides; Z91.013 Allergy to seafood; Z86.73 Personal history of transient ischemic attack (TIA), and cerebral infarction without residual deficits; R06.02 Shortness of breath
CPT/HCPCS: 28080

== ENCOUNTER → 2017-09-27 | Outpatient (REF) | payer MEDICARE ==
[2017-09-27 11:44] LABS: CHOLESTEROL LEVEL 181 MG/DL (<200); CHOLESTEROL RISK RATIO 1.905 (<5); HDL CHOLESTEROL 95 MG/DL (>40); LDL CHOLESTEROL 73.4 MG/DL (<100); NON-HDL-C 86 MG/DL; TRIGLYCERIDES LEVEL 63 MG/DL (<150)
== END ==
LOC: M LABDRAW1 09:33
DX: E78.00 Pure hypercholesterolemia, unspecified (principal)
CPT/HCPCS: 80061

== ENCOUNTER → 2018-02-27 | Outpatient (REF) | payer MEDICARE ==
[2018-02-27 16:35] LABS: BASO # 0.1 10^3/uL (0.0-0.2); BASO % 1.5 % (0.0-1.0); EOS # 0.3 10^3/uL (0.0-0.50); EOS % 6.7 % (0.0-3.0); HEMATOCRIT 39.6 % (36.0-47.0); HEMOGLOBIN 12.2 g/dl (12.0-15.5); IMMATURE GRANULOCYTE % 0.2 % (0-3.0); LYMPH # 1.4 10^3/uL (1.5-4.5); LYMPH % 30.1 % (24.0-44.0); MEAN CORPUSCULAR HEMOGLOBIN 28.8 pg (27.0-33.0); MEAN CORPUSCULAR HGB CONC 30.8 g/dl (32.0-36.5); MEAN CORPUSCULAR VOLUME 93.4 fl (80.0-96.0); MONO # 0.6 10^3/uL (0.0-0.8); MONO % 12.1 % (0.0-5.0); NEUTROPHILS # 2.4 10^3/uL (1.8-7.7); NEUTROPHILS % 49.4 % (36.0-66.0); PLATELET COUNT, AUTOMATED 135 10^3/uL (150-450); RED BLOOD COUNT 4.24 10^6/uL (4.00-5.40); RED CELL DISTRIBUTION WIDTH 13.5 % (11.5-14.5); WHITE BLOOD COUNT 4.8 10^3/uL (4.0-10.0)
[2018-02-27 16:47] LABS: CHOLESTEROL LEVEL 180 MG/DL (<200); FREE T4 1.09 NG/DL (0.76-1.46); HDL CHOLESTEROL 75 MG/DL (>40); LDL CHOLESTEROL 85 MG/DL (<100); NON-HDL-C 105 MG/DL; TRIGLYCERIDES LEVEL 99 MG/DL (<150)
== END ==
LOC: M LABDRAW1 15:46
DX: E03.9 Hypothyroidism, unspecified (principal); I65.21 Occlusion and stenosis of right carotid artery
CPT/HCPCS: 84443

== ENCOUNTER → 2018-02-27 | Outpatient (REF) | payer MEDICARE ==
[2018-02-27 16:42] LABS: RHEUMATOID FACTOR QUANT < 10.0 IU/ML (<15.0)
[2018-02-27 20:16] LABS: ERYTHROCYTE SEDIMENTATION RATE 31 mm/hr (0-30)
[2018-03-02 00:56] LABS: ANTINUCLEAR ANTIBODIES DIRECT Negative (Negative); Lyme Disease IgG/IgM Antibodie <0.91 ISR (0.00-0.90); Lyme Disease IgM Ab Quantitati <0.80 index (0.00-0.79)
[2018-03-06 10:06] LABS: DRVV SCREEN 37.9 SEC
[2018-03-06 10:22] LABS: PTT LUPUS TYPE ANTICOAG SCREEN 0.9 (0-1.2)
== END ==
LOC: M LABDRAW1 15:48
DX: M25.50 Pain in unspecified joint (principal)
CPT/HCPCS: 85730

== ENCOUNTER → 2018-03-06 | Outpatient (REF) | payer MEDICARE ==
[2018-03-13 14:12] LABS: FATS NEUTRAL Normal (.); FATS TOTAL Normal (.)
[2018-03-13 14:12] LABS: H PYLORI STOOL ANTIGEN Negative (Negative)
== END ==
LOC: M LAB REF 17:15
DX: R19.7 Diarrhea, unspecified (principal)
CPT/HCPCS: 82705

== ENCOUNTER → 2018-03-14 | Outpatient (REF) | payer MEDICARE ==
[2018-03-14 16:37] LABS: ANION GAP 9 MEQ/L (8-16); BLOOD UREA NITROGEN 20 MG/DL (7-18); CALCIUM LEVEL 8.2 MG/DL (8.8-10.2); CARBON DIOXIDE LEVEL 24 MEQ/L (21-32); CHLORIDE LEVEL 111 MEQ/L (98-107); CREATININE FOR GFR 1.09 MG/DL (0.55-1.30); GLOMERULAR FILTRATION RATE 52.4 (>39); GLUCOSE, FASTING 82 MG/DL (70-100); MAGNESIUM LEVEL 1.9 MG/DL (1.8-2.4); SODIUM LEVEL 144 MEQ/L (136-145)
[2018-03-14 16:40] LABS: BASO # 0.1 10^3/uL (0.0-0.2); BASO % 1.2 % (0.0-1.0); EOS # 0.2 10^3/uL (0.0-0.50); HEMATOCRIT 37.1 % (36.0-47.0); HEMOGLOBIN 11.9 g/dl (12.0-15.5); IMMATURE GRANULOCYTE % 0.2 % (0-3.0); LYMPH # 1.1 10^3/uL (1.5-4.5); LYMPH % 18.7 % (24.0-44.0); MEAN CORPUSCULAR HEMOGLOBIN 29.1 pg (27.0-33.0); MEAN CORPUSCULAR HGB CONC 32.1 g/dl (32.0-36.5); MEAN CORPUSCULAR VOLUME 90.7 fl (80.0-96.0); MONO # 0.5 10^3/uL (0.0-0.8); MONO % 8.2 % (0.0-5.0); NEUTROPHILS # 3.9 10^3/uL (1.8-7.7); NEUTROPHILS % 68.7 % (36.0-66.0); PLATELET COUNT, AUTOMATED 136 10^3/uL (150-450); RED BLOOD COUNT 4.09 10^6/uL (4.00-5.40); RED CELL DISTRIBUTION WIDTH 13.6 % (11.5-14.5); WHITE BLOOD COUNT 5.6 10^3/uL (4.0-10.0)
== END ==
LOC: M LABDRAW1 15:32
DX: R42 Dizziness and giddiness (principal)
CPT/HCPCS: 83735

== ENCOUNTER → 2018-08-21 | Outpatient (REF) | payer MEDICARE ==
[~2018-08-21] MED LIST changes: +ACYC200C8 PO; -ASPI1TAB PO; +ASPI81TA26 PO; +BIOT50004 PO; +CULTCAP2 PO; +OXYC1TAB23 PO; -PANT40TA2 PO; +PANT40TA3 PO; +TOPA1TAB PO; +[UNRECOGNIZED DRUG - OTHER] OP
[2018-08-21 13:03] LABS: ALBUMIN 3.6 GM/DL (3.2-5.2); ALT/SGPT 37 U/L (12-78); BILIRUBIN,TOTAL 0.2 MG/DL (0.2-1.0); BLOOD UREA NITROGEN 21 MG/DL (7-18); CALCIUM LEVEL 8.8 MG/DL (8.8-10.2); CARBON DIOXIDE LEVEL 24 MEQ/L (21-32); CHLORIDE LEVEL 113 MEQ/L (98-107); CHOLESTEROL LEVEL 164 MG/DL (<200); CREATININE FOR GFR 0.96 MG/DL (0.55-1.30); FREE T4 1.21 NG/DL (0.76-1.46); GLOMERULAR FILTRATION RATE > 60.0 (>39); GLUCOSE, FASTING 82 MG/DL (70-100); HDL CHOLESTEROL 82 MG/DL (>40); LDL CHOLESTEROL 71 MG/DL (<100); NON-HDL-C 82 MG/DL; POTASSIUM SERUM 4.2 MEQ/L (3.5-5.1); SODIUM LEVEL 142 MEQ/L (136-145); THYROID STIMULATING HORMONE 0.401 uIU/ML (0.358-3.740); TOTAL PROTEIN 6.4 GM/DL (6.4-8.2); TRIGLYCERIDES LEVEL 57 MG/DL (<150)
[2018-08-21 13:17] LABS: BASO # 0.1 10^3/uL (0.0-0.2); BASO % 1.6 % (0.0-1.0); EOS # 0.2 10^3/uL (0.0-0.50); EOS % 4.2 % (0.0-3.0); HEMATOCRIT 37.5 % (36.0-47.0); HEMOGLOBIN 11.8 g/dl (12.0-15.5); LYMPH # 1.3 10^3/uL (1.5-4.5); LYMPH % 32.7 % (24.0-44.0); MEAN CORPUSCULAR HEMOGLOBIN 29.3 pg (27.0-33.0); MEAN CORPUSCULAR HGB CONC 31.5 g/dl (32.0-36.5); MEAN CORPUSCULAR VOLUME 93.1 fl (80.0-96.0); MONO # 0.5 10^3/uL (0.0-0.8); MONO % 13.5 % (0.0-5.0); NEUTROPHILS # 1.8 10^3/uL (1.8-7.7); NEUTROPHILS % 47.7 % (36.0-66.0); PLATELET COUNT, AUTOMATED 179 10^3/uL (150-450); RED BLOOD COUNT 4.03 10^6/uL (4.00-5.40); WHITE BLOOD COUNT 3.9 10^3/uL (4.0-10.0)
== END ==
LOC: M LABDRAW1 11:54
PROVIDERS: ATTEND Family Medicine
DX: E03.9 Hypothyroidism, unspecified (principal); G43.009 Migraine without aura, not intractable, without status migrainosus

== ENCOUNTER 2018-09-27 10:51 | Day surgery (SDC) | payer MEDICARE ==
[~2018-09-27] VITALS: Ht 152.4 cm; Wt 50.7 kg
[~2018-09-27 10:51] MED LIST changes: +BALANCED SALT IRRIGATION SOLUTION 500ML BAG (FOR OR EYE MACHINE) As Ordered ONE; +CEFUROXIME 1MG/0.1ML INTRACAMERAL INJ As Ordered ONE; +DUOVISC (0.50ML VISCOAT/0.55ML PROVISC) OPHTH KIT As Ordered ONE; +IBUPROFEN 100 MG/5 ML SUSP UDC DYE FREE As Ordered ONE; +LIDOCAINE 0.75%/EPINEPHRINE 0.025% IN BSS 1ML SYR INTRACAMERAL (OR ONLY) As Ordered ONE; +MIDAZOLAM INJ 2 MG/2 ML VIAL (J2250) As Ordered ONE; +NAPR375T5 PO; +OFLOXACIN 0.3 % (OCUFLOX) OPTH SOL 5ML OS ONE; +PHENYLEPHRINE 2.5% OPHTH SOL 2ML OS ONE; +POVIDONE-IODINE 5% OPHTH PREP SOL 30ML As Ordered ONE; +PROPARACAINE 0.5% OPHTH SOL 15ML OS ONE; +SOOT1DRO OP; +TROPICAMIDE 1% OPHTH SOLN 2ML OS ONE; +VITA30004 PO; +fentaNYL 100 MCG/2 ML INJECTION (J3010) As Ordered ONE
[2018-09-27 12:55] VITALS: BP 101/58
--- NOTE | 2018-09-28 07:55 | RO ---
DATE OF PROCEDURE: 09/27/2018 PREOPERATIVE DIAGNOSIS: 1. Visually significant nuclear sclerotic cataract left eye. POSTOPERATIVE DIAGNOSIS: 1. Visually significant nuclear sclerotic cataract left eye. PROCEDURE: 1. Cataract extraction with use of phacoemulsification and placement of intraocular lens, AU00T0 20.0 D, left eye. SURGEON: Jesus Alberto Díaz DO TURNAROUND ENGINEER: None. ANESTHESIA: Local with monitored anesthesia care (MAC). COMPLICATIONS: None. POSTOPERATIVE CONDITION: Stable. INDICATIONS FOR SURGERY: 1. Blurred vision affecting patients activities of daily living. DESCRIPTION OF PROCEDURE: The patient was seen in the preoperative area and properly identified. The correct operative eye was identified and marked. The patient received topical anesthetic, antibiotics, and topical dilating drops. The patient was then transferred to the operating room. The correct side was re-identified, and a time-out was performed. The eye was prepped and draped in a sterile fashion. The eyelids were isolated with Tegaderm tape, and the lids were held open with an adjustable speculum. A 1.0 mm paracentesis incision was made. Intraocular preservative-free Shugarcaine was then injected into the anterior chamber. Viscoelastic was then injected into the anterior chamber through the paracentesis. Using a 2.4 mm sharp-tipped keratome, the anterior chamber was entered via a temporal clear cornea incision. A continuous curvilinear capsulorrhexis was created with Utrata forceps. Hydrodissection was performed with balanced salt solution (BSS) on a blunt cannula until the nucleus was able to rotate freely. The crystalline lens was phacoemulsified and aspirated. Irrigation/aspiration was used to remove the cortical material. Cohesive viscoelastic was placed into the capsular bag to deepen it. The implant was placed into the capsular bag and allowed to unfold. Placement was confirmed by visualizing the anterior capsulorrhexis. Irrigation/aspiration was used to remove the viscoelastic. The clear corneal incision was hydrated with BSS on a blunt cannula. The lens was well positioned. The incisions were then tested for leaks and found to be negative. The eye was then palpated for appropriate pressure and adjusted accordingly with BSS. The eyelid speculum was then carefully removed. A shield was placed over the eye. The patient tolerated the procedure well and was discharged to the recovery unit in a stable condition.
== END 2018-09-27 13:07 | disposition home or self-care (01) ==
LOC: M SDC 10:51
PROVIDERS: ATTEND Ophthalmology
DX: H25.12 Age-related nuclear cataract, left eye (principal); E78.5 Hyperlipidemia, unspecified; I73.9 Peripheral vascular disease, unspecified; E03.9 Hypothyroidism, unspecified; K21.9 Gastro-esophageal reflux disease without esophagitis; K44.9 Diaphragmatic hernia without obstruction or gangrene; F32.9 Major depressive disorder, single episode, unspecified; Z88.2 Allergy status to sulfonamides; Z79.899 Other long term (current) drug therapy; Z86.73 Personal history of transient ischemic attack (TIA), and cerebral infarction without residual deficits
CPT/HCPCS: 66984; J2250; J3010; V2632

== ENCOUNTER 2018-10-11 09:52 | Day surgery (SDC) | payer MEDICARE ==
[~2018-10-11] VITALS: Ht 152.4 cm; Wt 50.5 kg
[~2018-10-11 09:52] MED LIST changes: +ACET-897 PO; -IBUPROFEN 100 MG/5 ML SUSP UDC DYE FREE As Ordered ONE; +KETO0.3S OS; -MIDAZOLAM INJ 2 MG/2 ML VIAL (J2250) As Ordered ONE; +OFLO3OPSO; +OFLOXACIN 0.3 % (OCUFLOX) OPTH SOL 5ML OD ONE; -OFLOXACIN 0.3 % (OCUFLOX) OPTH SOL 5ML OS ONE; +PHENYLEPHRINE 2.5% OPHTH SOL 2ML OD ONE; -PHENYLEPHRINE 2.5% OPHTH SOL 2ML OS ONE; +PROPARACAINE 0.5% OPHTH SOL 15ML OD ONE; -PROPARACAINE 0.5% OPHTH SOL 15ML OS ONE; +TROPICAMIDE 1% OPHTH SOLN 2ML OD ONE; -TROPICAMIDE 1% OPHTH SOLN 2ML OS ONE; -fentaNYL 100 MCG/2 ML INJECTION (J3010) As Ordered ONE
[2018-10-11] MEDS ORDERED: MIDAZOLAM INJ 2 MG/2 ML VIAL (J2250) As Ordered ONE (11:13)
[2018-10-11] MEDS ORDERED: fentaNYL 100 MCG/2 ML INJECTION (J3010) As Ordered ONE (11:13)
[2018-10-11 11:43] VITALS: BP 113/55
--- NOTE | 2018-10-12 08:23 | RO ---
DATE OF PROCEDURE: 10/11/2018 PREOPERATIVE DIAGNOSIS: 1. Visually significant nuclear sclerotic cataract right eye. POSTOPERATIVE DIAGNOSIS: 1. Visually significant nuclear sclerotic cataract right eye. PROCEDURE: 1. Cataract extraction with use of phacoemulsification and placement of intraocular lens, AU00T0, 20.0 D, right eye. SURGEON: Jesus Alberto Díaz DO FRUIT WORKER: None. ANESTHESIA: Local with monitored anesthesia care (MAC). COMPLICATIONS: None. POSTOPERATIVE CONDITION: Stable. INDICATIONS FOR SURGERY: 1. Blurred vision affecting patients activities of daily living. DESCRIPTION OF PROCEDURE: The patient was seen in the preoperative area and properly identified. The correct operative eye was identified and marked. The patient received topical anesthetic, antibiotics, and topical dilating drops. The patient was then transferred to the operating room. The correct side was re-identified, and a time-out was performed. The eye was prepped and draped in a sterile fashion. The eyelids were isolated with Tegaderm tape, and the lids were held open with an adjustable speculum. A 1.0 mm paracentesis incision was made. Intraocular preservative-free Shugarcaine was then injected into the anterior chamber. Viscoelastic was then injected into the anterior chamber through the paracentesis. Using a 2.4 mm sharp-tipped keratome, the anterior chamber was entered via a temporal clear cornea incision. A continuous curvilinear capsulorrhexis was created with Utrata forceps. Hydrodissection was performed with balanced salt solution (BSS) on a blunt cannula until the nucleus was able to rotate freely. The crystalline lens was phacoemulsified and aspirated. Irrigation/aspiration was used to remove the cortical material. Cohesive viscoelastic was placed into the capsular bag to deepen it. The implant was placed into the capsular bag and allowed to unfold. Placement was confirmed by visualizing the anterior capsulorrhexis. Irrigation/aspiration was used to remove the viscoelastic. The clear corneal incision was hydrated with BSS on a blunt cannula. The lens was well positioned. The incisions were then tested for leaks and found to be negative. The eye was then palpated for appropriate pressure and adjusted accordingly with BSS. The eyelid speculum was then carefully removed. A shield was placed over the eye. The patient tolerated the procedure well and was discharged to the recovery unit in a stable condition.
== END 2018-10-11 12:18 | disposition home or self-care (01) ==
LOC: M SDC 09:52
PROVIDERS: ATTEND Ophthalmology
DX: H25.11 Age-related nuclear cataract, right eye (principal); E78.5 Hyperlipidemia, unspecified; E03.9 Hypothyroidism, unspecified; I73.9 Peripheral vascular disease, unspecified; K21.9 Gastro-esophageal reflux disease without esophagitis; F32.9 Major depressive disorder, single episode, unspecified; Z79.82 Long term (current) use of aspirin; Z79.899 Other long term (current) drug therapy; Z88.2 Allergy status to sulfonamides; Z91.013 Allergy to seafood
CPT/HCPCS: 66984; J2250; J3010; V2632

== ENCOUNTER 2018-10-24 09:26 | Day surgery (SDC) | payer MEDICARE ==
[~2018-10-24] VITALS: Ht 152.4 cm; Wt 48.5 kg
[~2018-10-24 09:26] MED LIST changes: -BALANCED SALT IRRIGATION SOLUTION 500ML BAG (FOR OR EYE MACHINE) As Ordered ONE; -CEFUROXIME 1MG/0.1ML INTRACAMERAL INJ As Ordered ONE; -DUOVISC (0.50ML VISCOAT/0.55ML PROVISC) OPHTH KIT As Ordered ONE; -LIDOCAINE 0.75%/EPINEPHRINE 0.025% IN BSS 1ML SYR INTRACAMERAL (OR ONLY) As Ordered ONE; +NS 1,000 ML IV ONE; -OFLOXACIN 0.3 % (OCUFLOX) OPTH SOL 5ML OD ONE; -PHENYLEPHRINE 2.5% OPHTH SOL 2ML OD ONE; -POVIDONE-IODINE 5% OPHTH PREP SOL 30ML As Ordered ONE; -PROPARACAINE 0.5% OPHTH SOL 15ML OD ONE; -TROPICAMIDE 1% OPHTH SOLN 2ML OD ONE
[2018-10-24] MEDS ORDERED: PROPOFOL 500 MG/50 ML VIAL As Ordered ONE (10:04)
[2018-10-24] MEDS ORDERED: LIDOCAINE 2% INJ 100 MG/5 ML SDV (FOR ANES.) As Ordered ONE (10:04)
--- NOTE | 2018-10-24 10:29 | ROOR ---
Patient Name: Fabiola Sainz Procedure Date: 10/24/2018 10:00 AM Date of : 1945 Age: 73 Room: [facility] Gender: Female Note Status: Finalized Procedure: Colonoscopy Indications: Constipation Providers: Leonard Winn DO Referring MD: Elisha COPE DO Requesting Provider: Medicines: Propofol per Anesthesia Complications: No immediate complications. Procedure: Pre-Anesthesia Assessment: - Prior to the procedure, a History and Physical was performed, and patient medications and allergies were reviewed. The patient is competent. The risks and benefits of the procedure and the sedation options and risks were discussed with the patient. All questions were answered and informed consent was obtained. Patient identification and proposed procedure were verified by the physician, the nurse, the anesthesiologist and the instrument room technician in the endoscopy suite. Mental Status Examination: alert and oriented. Airway Examination: normal oropharyngeal airway and neck mobility. Respiratory Examination: clear to auscultation. CV Examination: normal. Prophylactic Antibiotics: The patient does not require prophylactic antibiotics. Prior Anticoagulants: The patient has taken no previous anticoagulant or antiplatelet agents. ASA Grade Assessment: II - A patient with mild systemic disease. After reviewing the risks and benefits, the patient was deemed in satisfactory condition to undergo the procedure. The anesthesia plan was to use monitored anesthesia care (MAC). Immediately prior to administration of medications, the patient was re-assessed for adequacy to receive sedatives. The heart rate, respiratory rate, oxygen saturations, blood pressure, adequacy of pulmonary ventilation, and response to care were monitored throughout the procedure. The physical status of the patient was re-assessed after the procedure. The Colonoscope was introduced through the anus and advanced to the cecum, identified by appendiceal orifice and ileocecal valve. The colonoscopy was performed without difficulty. The patient tolerated the procedure well. Findings: Hemorrhoids were found on perianal exam. The exam was otherwise without abnormality on direct and retroflexion views. Impression: - Hemorrhoids found on perianal exam. - The examination was otherwise normal on direct and retroflexion views. - No specimens collected. Recommendation: - Patient has a contact number available for emergencies. The signs and symptoms of potential delayed complications were discussed with the patient. Return to normal activities tomorrow. Written discharge instructions were provided to the patient. - Repeat colonoscopy in 5-10 years for screening purposes. - Return to my office PRN. Leonard Winn DO 10/24/2018 10:29:28 AM Electronically signed by Leonard Winn DO Number of Addenda: 0 Note Initiated On: 10/24/2018 10:00 AM Estimated Blood Loss: Estimated blood loss: none.
[2018-10-24 10:50] VITALS: BP 114/51
== END 2018-10-24 10:54 | disposition home or self-care (01) ==
LOC: M OPP 09:26
PROVIDERS: ATTEND Surgery
DX: K64.3 Fourth degree hemorrhoids (principal); K50.00 Crohn's disease of small intestine without complications; Z79.82 Long term (current) use of aspirin; Z79.899 Other long term (current) drug therapy; Z88.2 Allergy status to sulfonamides; Z88.5 Allergy status to narcotic agent; Z91.013 Allergy to seafood

== ENCOUNTER → 2018-12-26 | Outpatient (CLI) | payer MEDICARE ==
[~2018-12-26] MED LIST changes: -NS 1,000 ML IV ONE; +RANI-356 PO; -RANI1TAB6 PO
--- NOTE | 2018-12-26 19:27 | REP ---
BILATERAL KNEE SERIES: Five views of the bilateral knees are performed. No acute fracture or dislocation is seen. There is slight lateral patellofemoral compartment narrowing bilaterally, otherwise the joint spaces are well preserved. Metallic rods and screws are seen in the distal right femur. IMPRESSION: Minimal degenerative changes lateral patellofemoral joints bilaterally. Electronically Signed by Leonard Machado MD 12/27/2018 10:58 A
== END ==
LOC: M SMT 14:12
PROVIDERS: ATTEND Family Medicine
DX: M25.562 Pain in left knee (principal)

== ENCOUNTER → 2019-03-22 | Outpatient (REF) | payer MEDICARE ==
[~2019-03-22] MED LIST changes: +FLUO20CA20 PO; -FLUO20CA8 PO; -RANI-356 PO; +RANI-397 PO; -TRAZ10TA PO; +TRAZ1TAB12 PO
[2019-03-22 12:48] LABS: BASO # 0.1 10^3/uL (0.0-0.2); BASO % 1.3 % (0.0-1.0); EOS # 0.2 10^3/uL (0.0-0.5); EOS % 2.7 % (0.0-3.0); HEMATOCRIT 42.7 % (36.0-47.0); HEMOGLOBIN 13.7 g/dl (12.0-15.5); LYMPH # 1.2 10^3/uL (1.5-5.0); LYMPH % 20.5 % (24.0-44.0); MEAN CORPUSCULAR HEMOGLOBIN 30.5 pg (27.0-33.0); MEAN CORPUSCULAR HGB CONC 32.1 g/dl (32.0-36.5); MEAN CORPUSCULAR VOLUME 95.1 fl (80.0-96.0); MONO # 0.7 10^3/uL (0.0-0.8); MONO % 12.2 % (0.0-5.0); NEUTROPHILS # 3.8 10^3/uL (1.5-8.5); NEUTROPHILS % 62.8 % (36.0-66.0); PLATELET COUNT, AUTOMATED 170 10^3/uL (150-450); RED BLOOD COUNT 4.49 10^6/uL (4.00-5.40)
[2019-03-22 13:25] LABS: ALBUMIN 3.6 GM/DL (3.2-5.2); ALT/SGPT 49 U/L (12-78); BILIRUBIN,TOTAL 0.4 MG/DL (0.2-1.0); BLOOD UREA NITROGEN 21 MG/DL (7-18); CALCIUM LEVEL 9.3 MG/DL (8.8-10.2); CARBON DIOXIDE LEVEL 25 MEQ/L (21-32); CHLORIDE LEVEL 103 MEQ/L (98-107); CHOLESTEROL LEVEL 176 MG/DL (<200); CHOLESTEROL RISK RATIO 1.955 (<5); CREATININE FOR GFR 0.96 MG/DL (0.55-1.30); FERRITIN 8 NG/ML (8-252); FOLATE 15.7 NG/ML; GLOMERULAR FILTRATION RATE > 60.0 (>39); GLUCOSE, FASTING 81 MG/DL (70-100); HDL CHOLESTEROL 90 MG/DL (>40); IRON (FE) 61 UG/DL (50-170); LDL CHOLESTEROL 73 MG/DL (<100); NON-HDL-C 86 MG/DL; PERCENT SATURATION 16.5 % (13.2-45.0); POTASSIUM SERUM 4.4 MEQ/L (3.5-5.1); SODIUM LEVEL 137 MEQ/L (136-145); TOTAL IRON BINDING CAPACITY 369 UG/DL (250-450); TOTAL PROTEIN 7.1 GM/DL (6.4-8.2); TRIGLYCERIDES LEVEL 65 MG/DL (<150); VITAMIN B12 LEVEL 805 PG/ML
== END ==
LOC: M LABDRAW1 12:06
PROVIDERS: ATTEND Physician Assistant
DX: Z00.00 Encounter for general adult medical examination without abnormal findings (principal); D64.9 Anemia, unspecified; M81.0 Age-related osteoporosis without current pathological fracture; E78.2 Mixed hyperlipidemia; E03.9 Hypothyroidism, unspecified; Z79.82 Long term (current) use of aspirin; Z79.899 Other long term (current) drug therapy

== ENCOUNTER → 2019-04-12 | Outpatient (CLI) | payer MEDICARE ==
[~2019-04-12] MED LIST changes: +TRAZ10TA PO; -TRAZ1TAB12 PO
--- NOTE | 2019-04-15 14:53 | REPMRS ---
Patient History The patient states she had a clinical breast exam in January 2019.Family history of breast cancer under age 50 in mother. Taking estrogen for 45 years beginning at age 22. Digital Woman Screen Mammo: April 12, 2019 - Exam #: [id number] Bilateral CC and MLO view(s) were taken. Technologist: Traci Andino, Technologist Prior study comparison: March 27, 2018, bilateral digital woman screen mammo, performed at [facility]. March 20, 2017, bilateral digital woman screen mammo, performed at [facility]. March 16, 2016, bilateral digital woman screen mammo, performed at [facility]. FINDINGS: There are scattered fibroglandular densities. There has been no change in the appearance of the mammogram from the prior studies. There is a mild amount of scattered fibroglandular density which is fairly symmetric. There is no interval development of dominant mass, architectural distortion, or grouped microcalcification suggestive of malignancy. 3-D tomosynthesis shows no additional findings. Assessment: BI-RADS/ACR category 1 mammogram. Negative Mammogram. Recommendation Routine screening mammogram of both breasts in 1 year (for women over age 40). This patient's Lifetime Breast Cancer Risk is estimated at 3.0 %. This mammogram was interpreted with the aid of an FDA-approved computer-aided dectection system. Electronically Signed By: Bharat Tang MD 04/15/19 [id number]
== END ==
LOC: M WHC 09:46
PROVIDERS: ATTEND Family Medicine
DX: Z12.31 Encounter for screening mammogram for malignant neoplasm of breast (principal)

== ENCOUNTER → 2019-07-15 | Outpatient (REF) | payer MEDICARE ==
[~2019-07-15] MED LIST changes: -TRAZ10TA PO; +TRAZ1TAB12 PO
== END ==
LOC: M LAB REF 10:40
PROVIDERS: ATTEND Physician Assistant
DX: K22.719 Barrett's esophagus with dysplasia, unspecified (principal); K44.9 Diaphragmatic hernia without obstruction or gangrene; B96.81 Helicobacter pylori [H. pylori] as the cause of diseases classified elsewhere; R10.13 Epigastric pain; R12 Heartburn

== ENCOUNTER → 2019-09-12 | Outpatient (CLI) | payer MEDICARE ==
[2019-09-12 15:28] LABS: BASO # 0.1 10^3/uL (0.0-0.2); BASO % 1.4 % (0.0-1.0); EOS # 0.1 10^3/uL (0.0-0.5); EOS % 2.8 % (0.0-3.0); HEMATOCRIT 42.8 % (36.0-47.0); LYMPH # 1.2 10^3/uL (1.5-5.0); LYMPH % 24.7 % (24.0-44.0); MEAN CORPUSCULAR HEMOGLOBIN 30.3 pg (27.0-33.0); MEAN CORPUSCULAR HGB CONC 32.7 g/dl (32.0-36.5); MEAN CORPUSCULAR VOLUME 92.6 fl (80.0-96.0); MONO # 0.5 10^3/uL (0.0-0.8); MONO % 10.8 % (0.0-5.0); NEUTROPHILS % 60.1 % (36.0-66.0); PLATELET COUNT, AUTOMATED 175 10^3/uL (150-450); RED BLOOD COUNT 4.62 10^6/uL (4.00-5.40); WHITE BLOOD COUNT 4.9 10^3/uL (4.0-10.0)
[2019-09-12 15:50] LABS: ALBUMIN 3.7 GM/DL (3.2-5.2); ALT/SGPT 40 U/L (12-78); BILIRUBIN,TOTAL 0.4 MG/DL (0.2-1.0); BLOOD UREA NITROGEN 25 MG/DL (7-18); CALCIUM LEVEL 9.2 MG/DL (8.8-10.2); CARBON DIOXIDE LEVEL 28 MEQ/L (21-32); CHLORIDE LEVEL 107 MEQ/L (98-107); CHOLESTEROL LEVEL 190 MG/DL (<200); CHOLESTEROL RISK RATIO 2.043 (<5); CREATININE FOR GFR 0.96 MG/DL (0.55-1.30); FREE T4 1.42 NG/DL (0.76-1.46); GLOMERULAR FILTRATION RATE > 60.0 (>39); GLUCOSE, FASTING 89 MG/DL (70-100); HDL CHOLESTEROL 93 MG/DL (>40); LDL CHOLESTEROL 86 MG/DL (<100); NON-HDL-C 97 MG/DL; POTASSIUM SERUM 4.6 MEQ/L (3.5-5.1); SODIUM LEVEL 140 MEQ/L (136-145); TOTAL PROTEIN 7.4 GM/DL (6.4-8.2); TRIGLYCERIDES LEVEL 55 MG/DL (<150)
== END ==
LOC: M PLALAB 12:18
PROVIDERS: ATTEND Physician Assistant
DX: E03.9 Hypothyroidism, unspecified (principal); K59.00 Constipation, unspecified; G43.009 Migraine without aura, not intractable, without status migrainosus

== ENCOUNTER → 2020-01-03 | Outpatient (CLI) | payer MEDICARE ==
[~2020-01-03] MED LIST changes: +PANT40TA29 PO; -PANT40TA3 PO
[2020-01-03 15:20] LABS: PLATELET COUNT, AUTOMATED 159 10^3/uL (150-450)
[2020-01-03 15:40] LABS: INR 0.98; PROTHROMBIN TIME 13.2 SECONDS (12.5-14.3)
[2020-01-03 15:41] LABS: PARTIAL THROMBOPLASTIN TIME 31.9 SECONDS (24.2-38.5)
== END ==
LOC: M PLALAB 12:59
PROVIDERS: ATTEND Physician Assistant
DX: M47.817 Spondylosis without myelopathy or radiculopathy, lumbosacral region (principal)

== ENCOUNTER → 2020-02-16 | Outpatient (CLI) | payer MEDICARE | LOC: M LABSMTC 09:10 | PROVIDERS: ATTEND Physical Medicine & Rehabilitation | DX: Z20.828 Contact with and (suspected) exposure to other viral communicable diseases (principal) ==

== ENCOUNTER → 2020-04-15 | Outpatient (CLI) | payer MEDICARE ==
[2020-04-15 13:17] LABS: BASO # 0.1 10^3/uL (0.0-0.2); BASO % 0.9 % (0.0-1.0); EOS # 0.2 10^3/uL (0.0-0.5); EOS % 3.1 % (0.0-3.0); HEMATOCRIT 42.6 % (36.0-47.0); HEMOGLOBIN 13.2 g/dl (12.0-15.5); LYMPH # 1.4 10^3/uL (1.5-5.0); LYMPH % 21.7 % (24.0-44.0); MEAN CORPUSCULAR HEMOGLOBIN 29.3 pg (27.0-33.0); MEAN CORPUSCULAR VOLUME 94.7 fl (80.0-96.0); MONO # 0.7 10^3/uL (0.0-0.8); MONO % 10.1 % (0.0-5.0); NEUTROPHILS # 4.1 10^3/uL (1.5-8.5); NEUTROPHILS % 63.9 % (36.0-66.0); PLATELET COUNT, AUTOMATED 176 10^3/uL (150-450); WHITE BLOOD COUNT 6.4 10^3/uL (4.0-10.0)
[2020-04-15 13:56] LABS: ALBUMIN 3.4 GM/DL (3.2-5.2); BILIRUBIN,TOTAL 0.3 MG/DL (0.2-1.0); CALCIUM LEVEL 9.3 MG/DL (8.8-10.2); CHOLESTEROL RISK RATIO 2.2 (<5); CREATININE FOR GFR 0.98 MG/DL (0.55-1.30); FREE T4 0.98 NG/DL (0.76-1.46); GLOMERULAR FILTRATION RATE 58.7 (>39); POTASSIUM SERUM 4.6 MEQ/L (3.5-5.1); THYROID STIMULATING HORMONE 4.75 uIU/ML (0.358-3.740); TOTAL PROTEIN 6.7 GM/DL (6.4-8.2)
== END ==
LOC: M PLALAB 10:40
PROVIDERS: ATTEND Physician Assistant
DX: E78.00 Pure hypercholesterolemia, unspecified (principal); E03.9 Hypothyroidism, unspecified; I65.22 Occlusion and stenosis of left carotid artery

== ENCOUNTER → 2020-04-20 | Outpatient (CLI) | payer MEDICARE ==
--- NOTE | 2020-04-20 13:20 | REPMRS ---
Patient History The patient states she had a clinical breast exam in 10/2019 Patient is postmenopausal. Family history of breast cancer under age 50 in mother. Benign excisional biopsy, 1971. Took estrogen for 45 years beginning at age 22. 3D TOMOSYNTHESIS WAS PERFORMED. The Myrna Mendieta lifetime risk for breast cancer is 2.7%. Volpara breast density b. Digital Woman Screen Mammo: April 20, 2020 - Exam #: [id number] Bilateral CC and MLO view(s) were taken. Technologist: Jackelyn Rhoades, Technologist Prior study comparison: April 12, 2019, bilateral digital woman screen mammo performed at [facility]. March 27, 2018, bilateral digital woman screen mammo, performed at [facility]. FINDINGS: There are scattered fibroglandular densities. There has been no change in the appearance of the mammogram from the prior studies. There is a mild amount of residual fibroglandular tissue which is fairly symmetric. There is no interval development of dominant mass, architectural distortion, or clustered microcalcification suggestive of malignancy. Assessment: BI-RADS/ACR category 1 mammogram. Negative Mammogram. Recommendation Routine screening mammogram in 1 year (for women over age 40). This mammogram was interpreted with the aid of an FDA-approved computer-aided dectection system. Electronically Signed By: Leonard Machado MD 04/20/20 [id number]
== END ==
LOC: M WHC 12:45
PROVIDERS: ATTEND Family Medicine
DX: Z12.31 Encounter for screening mammogram for malignant neoplasm of breast (principal); Z80.3 Family history of malignant neoplasm of breast

== ENCOUNTER → 2020-06-09 | Outpatient (REF) | payer MEDICARE ==
[2020-06-11 13:09] LABS: ANTINUCLEAR ANTIBODIES DIRECT Negative (Negative)
== END ==
LOC: M PLALAB 17:04
PROVIDERS: ATTEND Physician Assistant Medical
DX: M25.542 Pain in joints of left hand (principal); M54.5 Low back pain; M25.551 Pain in right hip

== ENCOUNTER → 2020-06-09 | Outpatient (REF) | payer MEDICARE ==
[2020-06-09 19:24] LABS: FREE T4 1.48 NG/DL (0.76-1.46); THYROID STIMULATING HORMONE 0.686 uIU/ML (0.358-3.740)
== END ==
LOC: M PLALAB 17:03
PROVIDERS: ATTEND Family Medicine
DX: E03.9 Hypothyroidism, unspecified (principal); M25.542 Pain in joints of left hand; M54.5 Low back pain; M25.551 Pain in right hip

== ENCOUNTER → 2020-06-12 | Outpatient (CLI) | payer MEDICARE ==
[2020-06-12 16:05] LABS: CALCIUM LEVEL 8.9 MG/DL (8.8-10.2); CREATININE FOR GFR 0.99 MG/DL (0.55-1.30); GLOMERULAR FILTRATION RATE 58.1 (>39); POTASSIUM SERUM 4.9 MEQ/L (3.5-5.1)
[2020-06-12 16:14] LABS: TOTAL 25(OH) VITAMIN D 52.2 NG/ML (30.0-100.0)
== END ==
LOC: M PLALAB 12:54
PROVIDERS: ATTEND Nurse Practitioner Family
DX: K22.70 Barrett's esophagus without dysplasia (principal); K21.9 Gastro-esophageal reflux disease without esophagitis; K44.9 Diaphragmatic hernia without obstruction or gangrene; R13.10 Dysphagia, unspecified; R14.0 Abdominal distension (gaseous); Z79.899 Other long term (current) drug therapy

== ENCOUNTER → 2020-06-18 | Outpatient (CLI) | payer MEDICARE ==
--- NOTE | 2020-06-18 15:29 | REP ---
INDICATION: PLEURODYNIA COMPARISON: None. TECHNIQUE: Frontal view of the chest with multiple views of the left hemithorax. Five total views. FINDINGS: Frontal view of the chest demonstrates no acute cardiopulmonary process, contusion, effusion, or pneumothorax. Multiple views of the hemithorax demonstrates no acute rib fracture/injury or pathology. IMPRESSION: No obvious left rib fracture or injury appreciated. <Electronically signed by Helio Marc > 06/18/20 [id number]
== END ==
LOC: M WUC 15:08
PROVIDERS: ATTEND Family Medicine
DX: R07.81 Pleurodynia (principal)

== ENCOUNTER → 2020-07-08 | Outpatient (CLI) | payer MEDICARE ==
[2020-07-08 15:38] LABS: HEMATOCRIT 40.2 % (36.0-47.0); HEMOGLOBIN 13.2 g/dl (12.0-15.5); MEAN CORPUSCULAR HEMOGLOBIN 30.8 pg (27.0-33.0); MEAN CORPUSCULAR HGB CONC 32.8 g/dl (32.0-36.5); MEAN CORPUSCULAR VOLUME 93.9 fl (80.0-96.0); PLATELET COUNT, AUTOMATED 200 10^3/uL (150-450); RED BLOOD COUNT 4.28 10^6/uL (4.00-5.40); WHITE BLOOD COUNT 7.1 10^3/uL (4.0-10.0)
[2020-07-08 16:06] LABS: BLOOD UREA NITROGEN 19 MG/DL (7-18); CARBON DIOXIDE LEVEL 28 MEQ/L (21-32); CHLORIDE LEVEL 102 MEQ/L (98-107); CREATININE FOR GFR 0.84 MG/DL (0.55-1.30); GLOMERULAR FILTRATION RATE > 60.0 (>39); GLUCOSE, FASTING 84 MG/DL (70-100); POTASSIUM SERUM 4.5 MEQ/L (3.5-5.1); SODIUM LEVEL 137 MEQ/L (136-145)
[2020-07-08 16:10] LABS: PERCENT SATURATION 31.5 % (13.2-45.0)
== END ==
LOC: M PLALAB 12:39
PROVIDERS: ATTEND Family Medicine
DX: Q60.0 Renal agenesis, unilateral (principal)

== ENCOUNTER → 2020-08-13 | Outpatient (REF) | payer MEDICARE, OTHER ==
[2020-08-15 14:09] LABS: SSA SJOGRENS A <0.2 AI (0.0-0.9); SSB SJOGRENS B <0.2 AI (0.0-0.9)
== END ==
LOC: M SFHCRHEU 15:11
PROVIDERS: ATTEND Internal Medicine
DX: R68.2 Dry mouth, unspecified (principal); R70.0 Elevated erythrocyte sedimentation rate

== ENCOUNTER → 2020-09-04 | Outpatient (CLI) | payer MEDICARE ==
--- NOTE | 2020-09-04 09:13 | REP ---
INDICATION: CKD STAGE 2. COMPARISON: 04/22/2020. TECHNIQUE: Real-time sonographic evaluation of the left kidney is performed. 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 The left kidney is normal in size and echotexture 10.9 x 4.9 x 5.2 cm. There is no evidence of hydronephrosis, cyst, mass, or calculus in the left kidney. The urinary bladder is empty. Incidental note is made of a 7 mm hyperechoic nodule in the right lobe of the liver likely representing a small hemangioma. Duplex Doppler evaluation of left renal artery performed. The peak systolic velocity of the abdominal aorta at the level of the renal arteries is 115 centimeter/second. The peak systolic velocity of the main left renal artery is 142 centimeter/second, renal to aortic ratio 1.23. Resistive indices left kidney range between 0.74 and 0.75. Acceleration times range between 0.028 and 0.041. IMPRESSION: Right renal agenesis. Left kidney has a normal appearance. There is no compelling duplex Doppler sonographic evidence of hemodynamically significant stenosis of the main left renal artery. <Electronically signed by Leonard Machado > 09/04/20 [id number]
== END ==
LOC: M RAD 07:52
PROVIDERS: ATTEND Internal Medicine Nephrology
DX: N18.2 Chronic kidney disease, stage 2 (mild) (principal); Q60.0 Renal agenesis, unilateral; R80.9 Proteinuria, unspecified; N28.89 Other specified disorders of kidney and ureter; Z79.899 Other long term (current) drug therapy

== ENCOUNTER → 2020-09-24 | Outpatient (CLI) | payer MEDICARE ==
--- NOTE | 2020-09-24 12:30 | DEXAMM ---
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 COMPARISON: 02/28/2014. TECHNIQUE: Bone density was measured using dual-energy x-ray absorptiometry (DEXA). FINDINGS: AP SPINE L1-L4 BMD 0.882 g/cm2 Young Adult T-Score -2.5 Age Matched Z-Score -0.8. LT FEMUR, TOTAL BMD 0.894 g/cm2 Young Adult T-Score -0.9 Age Matched Z-Score 0.9. LT NECK BMD 0.822 g/cm2 Young Adult T-Score -1.6 Age Matched Z-Score 0.4. IMPRESSION: There is low bone density of the spine. There is low bone density of the left hip. The density of the spine has decreased 5.2% since the initial exam on 02/28/2014. The density of the left hip has decreased 5.1% since initial exam on 02/28/2014. FOLLOW-UP: Recommendation for the next bone density exam: 2 years. <Electronically signed by Leonard Machado > 09/24/20 [id number]
== END ==
LOC: M WHC 10:04
PROVIDERS: ATTEND Physician Assistant
DX: M81.0 Age-related osteoporosis without current pathological fracture (principal)

== ENCOUNTER → 2020-12-08 | Outpatient (CLI) | payer MEDICARE ==
[2020-12-08 14:53] LABS: BASO # 0.1 10^3/uL (0.0-0.2); BASO % 0.9 % (0.0-1.0); EOS # 0.3 10^3/uL (0.0-0.5); EOS % 4.8 % (0.0-3.0); HEMATOCRIT 37.5 % (36.0-47.0); HEMOGLOBIN 12.5 g/dl (12.0-15.5); LYMPH # 1.3 10^3/uL (1.5-5.0); LYMPH % 20.2 % (24.0-44.0); MEAN CORPUSCULAR HEMOGLOBIN 30.6 pg (27.0-33.0); MEAN CORPUSCULAR HGB CONC 33.3 g/dl (32.0-36.5); MEAN CORPUSCULAR VOLUME 91.7 fl (80.0-96.0); MONO # 0.7 10^3/uL (0.0-0.8); MONO % 10.9 % (2.0-8.0); NEUTROPHILS # 4.1 10^3/uL (1.5-8.5); PLATELET COUNT, AUTOMATED 183 10^3/uL (150-450); RED BLOOD COUNT 4.09 10^6/uL (4.00-5.40); WHITE BLOOD COUNT 6.5 10^3/uL (4.0-10.0)
[2020-12-08 15:22] LABS: THYROID STIMULATING HORMONE 0.71 uIU/ML (0.358-3.740)
[2020-12-08 15:23] LABS: TOTAL 25(OH) VITAMIN D 73.9 NG/ML (30.0-100.0)
[2020-12-10 18:07] LABS: Lyme Disease IgG/IgM Antibodie <0.91 ISR (0.00-0.90); Lyme Disease IgM Ab Quantitati <0.80 index (0.00-0.79)
== END ==
LOC: M LAB 13:41
PROVIDERS: ATTEND Physician Assistant Medical
DX: R53.83 Other fatigue (principal); E03.9 Hypothyroidism, unspecified; R51.9 Headache, unspecified; E55.9 Vitamin D deficiency, unspecified; Z79.899 Other long term (current) drug therapy

== ENCOUNTER → 2021-01-22 | Outpatient (CLI) | payer MEDICARE ==
--- NOTE | 2021-01-22 16:41 | REPVR ---
PROCEDURE INFORMATION: Exam: CT Maxillofacial Without Contrast, Sinus Exam date and time: 01/22/2021 3:45 PM Age: 75 years old Clinical indication: Sinusitis; Chronic; Additional info: Chronic sinusitis TECHNIQUE: Imaging protocol: CT Maxillofacial without contrast. Focus on the sinuses. Radiation optimization: All CT scans at this facility use at least one of these dose optimization techniques: automated exposure control; mA and/or kV adjustment per patient size (includes targeted exams where dose is matched to clinical indication); or iterative reconstruction. COMPARISON: MRI BRAIN W/O CONTRAST - OUTSIDE PRIOR 12/07/2020 4:56 PM FINDINGS: Frontal sinuses: Normal. No air-fluid levels. Ethmoid air cells: Normal. No air-fluid levels. Sphenoid sinuses: Mucosal thickening and fluid noted in the the dependent portions of both sphenoid sinuses. Maxillary sinuses: Normal. No air-fluid levels. Ostiomeatal units are patent. Nasal cavity/Septum: Normal. Orbital cavity: Orbits are normal. Globes are unremarkable. Bones/joints: Unremarkable. Soft tissues: Unremarkable. IMPRESSION: 1. Acute sphenoid sinusitis Electronically signed by: Siomara Pittman On 01/22/2021 16:40:56 PM
== END ==
LOC: M RAD 15:21
PROVIDERS: ATTEND Otolaryngology
DX: J32.9 Chronic sinusitis, unspecified (principal); F51.9 Sleep disorder not due to a substance or known physiological condition, unspecified; J01.30 Acute sphenoidal sinusitis, unspecified

== ENCOUNTER → 2021-02-18 | Outpatient (CLI) | payer MEDICARE ==
[2021-02-18 13:43] LABS: PLATELET COUNT, AUTOMATED 178 10^3/uL (150-450)
[2021-02-18 13:57] LABS: INR 0.9; PROTHROMBIN TIME 12.6 SECONDS (12.7-14.5)
[2021-02-18 13:58] LABS: PARTIAL THROMBOPLASTIN TIME 32.9 SECONDS (25.9-37.0)
== END ==
LOC: M PLALAB 11:12
PROVIDERS: ATTEND Physical Medicine & Rehabilitation
DX: M47.817 Spondylosis without myelopathy or radiculopathy, lumbosacral region (principal)

== ENCOUNTER → 2021-02-18 | Outpatient (CLI) | payer MEDICARE ==
[2021-02-18 13:43] LABS: BASO # 0.1 10^3/uL (0.0-0.2); BASO % 1.6 % (0.0-1.0); EOS # 0.4 10^3/uL (0.0-0.5); EOS % 8.4 % (0.0-3.0); HEMATOCRIT 41.3 % (36.0-47.0); HEMOGLOBIN 13.3 g/dl (12.0-15.5); LYMPH # 1.6 10^3/uL (1.5-5.0); LYMPH % 31.3 % (24.0-44.0); MEAN CORPUSCULAR HEMOGLOBIN 30.2 pg (27.0-33.0); MEAN CORPUSCULAR HGB CONC 32.2 g/dl (32.0-36.5); MEAN CORPUSCULAR VOLUME 93.9 fl (80.0-96.0); MONO # 0.5 10^3/uL (0.0-0.8); MONO % 10.5 % (2.0-8.0); NEUTROPHILS # 2.5 10^3/uL (1.5-8.5); PLATELET COUNT, AUTOMATED 187 10^3/uL (150-450); WHITE BLOOD COUNT 5.1 10^3/uL (4.0-10.0)
[2021-02-18 14:34] LABS: ALBUMIN 3.7 GM/DL (3.2-5.2); BILIRUBIN,TOTAL 0.4 MG/DL (0.2-1.0); CALCIUM LEVEL 10.3 MG/DL (8.8-10.2); CHOLESTEROL RISK RATIO 2.636 (<5); CREATININE FOR GFR 0.98 MG/DL (0.55-1.30); FREE T4 0.99 NG/DL (0.76-1.46); GLOMERULAR FILTRATION RATE 58.7 (>39); POTASSIUM SERUM 4.6 MEQ/L (3.5-5.1); THYROID STIMULATING HORMONE 1.96 uIU/ML (0.358-3.740); TOTAL PROTEIN 7.1 GM/DL (6.4-8.2)
== END ==
LOC: M PLALAB 11:08
PROVIDERS: ATTEND Family Medicine
DX: Q60.0 Renal agenesis, unilateral (principal); I65.21 Occlusion and stenosis of right carotid artery; G43.009 Migraine without aura, not intractable, without status migrainosus; Z79.899 Other long term (current) drug therapy

== ENCOUNTER → 2021-03-16 | Outpatient (CLI) | payer MEDICARE ==
[~2021-03-16] MED LIST changes: -ALEN70SO PO; +ALEN70SO2 PO; +FLUO-96 PO; -FLUO20CA20 PO
== END ==
LOC: M RAD 10:53
PROVIDERS: ATTEND Family Medicine
DX: I65.23 Occlusion and stenosis of bilateral carotid arteries (principal)

== ENCOUNTER → 2021-04-29 | Outpatient (REF) | payer MEDICARE ==
[~2021-04-29] MED LIST changes: +ALEN70SO PO; -ALEN70SO2 PO
== END ==
LOC: M LAB REF 16:46
PROVIDERS: ATTEND Family Medicine
DX: J01.90 Acute sinusitis, unspecified (principal)

== ENCOUNTER 2021-06-22 07:38 | Emergency (ER) | payer MEDICARE ==
[~2021-06-22] VITALS: Ht 152.4 cm; Wt 52.3 kg
[~2021-06-22 07:38] MED LIST changes: -ALEN70SO PO; +ALEN70SO2 PO
[2021-06-22] MEDS ORDERED: NS 500 ML IV ONE (08:25)
[2021-06-22 09:28] LABS: VENOUS BASE EXCESS 0.9 (-2.0-2.0); VENOUS HCO3 25.6 MEQ/L (23.0-27.0); VENOUS O2 SATURATION 84.9 % (60.0-80.0); VENOUS PARTIAL PRESSURE CO2 41.2 mmHg (38.0-50.0); VENOUS PARTIAL PRESSURE O2 48.5 mmHg (30.0-50.0); VENOUS PH 7.411 UNITS (7.330-7.430); VENOUS TOTAL CO2 26.9 MEQ/L (24.0-28.0)
[2021-06-22 09:41] LABS: BASO # 0.1 10^3/uL (0.0-0.2); BASO % 0.4 % (0.0-1.0); EOS % 0.2 % (0.0-3.0); HEMOGLOBIN 11.8 g/dl (12.0-15.5); LYMPH # 0.9 10^3/uL (1.5-5.0); LYMPH % 4.6 % (24.0-44.0); MEAN CORPUSCULAR HEMOGLOBIN 29.6 pg (27.0-33.0); MEAN CORPUSCULAR HGB CONC 32.8 g/dl (32.0-36.5); MEAN CORPUSCULAR VOLUME 90.2 fl (80.0-96.0); MONO # 0.9 10^3/uL (0.0-0.8); NEUTROPHILS # 16.7 10^3/uL (1.5-8.5); NEUTROPHILS % 89.3 % (36.0-66.0); PLATELET COUNT, AUTOMATED 190 10^3/uL (150-450); RED BLOOD COUNT 3.99 10^6/uL (4.00-5.40); WHITE BLOOD COUNT 18.7 10^3/uL (4.0-10.0)
[2021-06-22 10:15] LABS: ALBUMIN 2.9 GM/DL (3.2-5.2); ALT/SGPT 25 U/L (12-78); BILIRUBIN,DIRECT < 0.1 MG/DL (0.0-0.2); BILIRUBIN,TOTAL 0.4 MG/DL (0.2-1.0); BLOOD UREA NITROGEN 22 MG/DL (7-18); CALCIUM LEVEL 8.7 MG/DL (8.8-10.2); CARBON DIOXIDE LEVEL 27 MEQ/L (21-32); CHLORIDE LEVEL 101 MEQ/L (98-107); CK-MB VALUE MASS < 1.0 NG/ML (<3.6); CPK CREATINE PHOSPHOKINASE 50 U/L (26-192); GLOMERULAR FILTRATION RATE 57.2 (>39); GLUCOSE, FASTING 105 MG/DL (70-100); NT-PRO BNP 396 PG/ML (<450); POTASSIUM SERUM 5.1 MEQ/L (3.5-5.1); SODIUM LEVEL 134 MEQ/L (136-145); THYROXINE (T4) 9.3 UG/DL (4.5-12.0); TOTAL PROTEIN 6.4 GM/DL (6.4-8.2)
[2021-06-22 11:23] LABS: CK-MB VALUE MASS < 1.0 NG/ML (<3.6); CPK CREATINE PHOSPHOKINASE 38 U/L (26-192); MB/CK RELATIVE INDEX 2.63 (< OR =4)
[2021-06-22] MEDS ORDERED: ISOVUE-370 76% 100ML VIAL As Ordered ONE (11:46)
[2021-06-22 15:15] VITALS: BP 128/62
== END 2021-06-22 15:28 | disposition home or self-care (01) ==
LOC: M ED 07:38
DX: R07.89 Other chest pain (principal); R06.02 Shortness of breath; I10 Essential (primary) hypertension; E78.5 Hyperlipidemia, unspecified; E03.9 Hypothyroidism, unspecified; F33.9 Major depressive disorder, recurrent, unspecified; K21.9 Gastro-esophageal reflux disease without esophagitis; Z86.73 Personal history of transient ischemic attack (TIA), and cerebral infarction without residual deficits; Z88.1 Allergy status to other antibiotic agents; Z88.2 Allergy status to sulfonamides; Z88.5 Allergy status to narcotic agent; Z91.018 Allergy to other foods; Z79.899 Other long term (current) drug therapy; Z79.82 Long term (current) use of aspirin; Z79.890 Hormone replacement therapy
CPT/HCPCS: 70450; 71045; 71275; 74177; 80048; 80076; 81001; 82550; 82553; 82803; 83605; 83880; 84436; 84443; 84484; 85025; 87040; 87798; 93005; 93041; 96360; 99285; Q9967

== ENCOUNTER → 2021-06-24 | Outpatient (CLI) | payer MEDICARE ==
[2021-06-24 17:19] LABS: BASO # 0.1 10^3/uL (0.0-0.2); BASO % 0.7 % (0.0-1.0); EOS # 0.4 10^3/uL (0.0-0.5); EOS % 4.7 % (0.0-3.0); HEMATOCRIT 36.3 % (36.0-47.0); HEMOGLOBIN 11.9 g/dl (12.0-15.5); LYMPH # 1.3 10^3/uL (1.5-5.0); LYMPH % 15.5 % (24.0-44.0); MEAN CORPUSCULAR HEMOGLOBIN 29.5 pg (27.0-33.0); MEAN CORPUSCULAR HGB CONC 32.8 g/dl (32.0-36.5); MEAN CORPUSCULAR VOLUME 90.1 fl (80.0-96.0); MONO # 0.9 10^3/uL (0.0-0.8); MONO % 10.4 % (2.0-8.0); NEUTROPHILS # 5.8 10^3/uL (1.5-8.5); NEUTROPHILS % 68.5 % (36.0-66.0); PLATELET COUNT, AUTOMATED 199 10^3/uL (150-450); RED BLOOD COUNT 4.03 10^6/uL (4.00-5.40); WHITE BLOOD COUNT 8.5 10^3/uL (4.0-10.0)
[2021-06-24 17:43] LABS: FREE T4 1.44 NG/DL (0.76-1.46); THYROID STIMULATING HORMONE 0.309 uIU/ML (0.358-3.740)
== END ==
LOC: M PLALAB 14:36
PROVIDERS: ATTEND Nurse Practitioner Adult Health
DX: D72.829 Elevated white blood cell count, unspecified (principal); E07.9 Disorder of thyroid, unspecified

== ENCOUNTER → 2021-10-07 | Outpatient (CLI) | payer MEDICARE ==
[2021-10-07 13:28] LABS: BASO # 0.1 10^3/uL (0.0-0.2); BASO % 1.6 % (0.0-1.0); EOS # 0.1 10^3/uL (0.0-0.5); EOS % 1.8 % (0.0-3.0); HEMATOCRIT 41.4 % (36.0-47.0); LYMPH # 1.2 10^3/uL (1.5-5.0); LYMPH % 27.8 % (24.0-44.0); MEAN CORPUSCULAR HEMOGLOBIN 28.5 pg (27.0-33.0); MEAN CORPUSCULAR HGB CONC 31.4 g/dl (32.0-36.5); MEAN CORPUSCULAR VOLUME 90.8 fl (80.0-96.0); MONO # 0.5 10^3/uL (0.0-0.8); NEUTROPHILS # 2.5 10^3/uL (1.5-8.5); NEUTROPHILS % 56.8 % (36.0-66.0); PLATELET COUNT, AUTOMATED 163 10^3/uL (150-450); RED BLOOD COUNT 4.56 10^6/uL (4.00-5.40); WHITE BLOOD COUNT 4.4 10^3/uL (4.0-10.0)
[2021-10-07 14:10] LABS: BLOOD UREA NITROGEN 21 MG/DL (7-18); CALCIUM LEVEL 9.9 MG/DL (8.8-10.2); CARBON DIOXIDE LEVEL 28 MEQ/L (21-32); CHLORIDE LEVEL 105 MEQ/L (98-107); GLOMERULAR FILTRATION RATE > 60.0 (>39); GLUCOSE, FASTING 79 MG/DL (70-100); POTASSIUM SERUM 4.6 MEQ/L (3.5-5.1); SODIUM LEVEL 139 MEQ/L (136-145)
[2021-10-07 14:11] LABS: ALBUMIN 3.7 GM/DL (3.2-5.2); ALT/SGPT 21 U/L (12-78); BILIRUBIN,TOTAL 0.3 MG/DL (0.2-1.0); CHOLESTEROL LEVEL 205 MG/DL (<200); CHOLESTEROL RISK RATIO 2.091 (<5); FREE T4 0.85 NG/DL (0.76-1.46); HDL CHOLESTEROL 98 MG/DL (>40); LDL CHOLESTEROL 94 MG/DL (<100); NON-HDL-C 107 MG/DL; TOTAL PROTEIN 7.1 GM/DL (6.4-8.2); TRIGLYCERIDES LEVEL 67 MG/DL (<150)
== END ==
LOC: M PLALAB 10:50
PROVIDERS: ATTEND Family Medicine
DX: Q60.0 Renal agenesis, unilateral (principal); K21.9 Gastro-esophageal reflux disease without esophagitis; E03.9 Hypothyroidism, unspecified

== ENCOUNTER → 2021-10-25 | Outpatient (CLI) | payer MEDICARE ==
[~2021-10-25] MED LIST changes: +PROHANCE 279.3MG/ML 5ML VIAL ONE
== END ==
LOC: M PLAIMG 13:07
PROVIDERS: ATTEND Physical Medicine & Rehabilitation
DX: M47.817 Spondylosis without myelopathy or radiculopathy, lumbosacral region (principal)
CPT/HCPCS: 72158; A9576

== ENCOUNTER → 2021-12-08 | Outpatient (CLI) | payer MEDICARE ==
[~2021-12-08] MED LIST changes: -PROHANCE 279.3MG/ML 5ML VIAL ONE
[2021-12-08 12:51] LABS: PLATELET COUNT, AUTOMATED 173 10^3/uL (150-450)
[2021-12-08 13:16] LABS: INR 0.94; PROTHROMBIN TIME 12.9 SECONDS (12.7-14.5)
[2021-12-08 13:17] LABS: PARTIAL THROMBOPLASTIN TIME 30.6 SECONDS (25.9-37.0)
== END ==
LOC: M LAB 12:00
PROVIDERS: ATTEND Physician Assistant Surgical
DX: M47.896 Other spondylosis, lumbar region (principal)

== ENCOUNTER 2022-01-11 06:37 | Emergency (ER) | payer MEDICARE ==
[~2022-01-11] VITALS: Ht 152.4 cm; Wt 51.2 kg
[2022-01-11] MEDS ORDERED: GI COCKTAIL 50ML BTL(HYOSCYAMINE/MAALOX/LIDOCAINE VISCOUS)(1:3:1) PO ONE (07:35)
[2022-01-11 08:14] LABS: HEMATOCRIT 36.2 % (36.0-47.0); HEMOGLOBIN 11.7 g/dl (12.0-15.5); MEAN CORPUSCULAR HEMOGLOBIN 29.5 pg (27.0-33.0); MEAN CORPUSCULAR HGB CONC 32.3 g/dl (32.0-36.5); MEAN CORPUSCULAR VOLUME 91.4 fl (80.0-96.0); PLATELET COUNT, AUTOMATED 166 10^3/uL (150-450); RED BLOOD COUNT 3.96 10^6/uL (4.00-5.40); WHITE BLOOD COUNT 6.2 10^3/uL (4.0-10.0)
[2022-01-11 08:18] LABS: INR 0.9; PARTIAL THROMBOPLASTIN TIME 28.2 SECONDS (25.9-37.0); PROTHROMBIN TIME 12.5 SECONDS (12.7-14.5)
[2022-01-11 08:43] LABS: ATYPICAL LYMPH 5 % (0-5); BASOPHILS 1 % (0-1); LYMPHOCYTES 13 % (16-44); MONOCYTES 11 % (0-5); NEUTROPHILS 69 % (28-66)
[2022-01-11 08:44] LABS: PLATELET ESTIMATE NORMAL (NORMAL)
[2022-01-11 08:48] LABS: ALBUMIN 3.4 GM/DL (3.2-5.2); ALT/SGPT 23 U/L (12-78); BILIRUBIN,DIRECT < 0.1 MG/DL (0.0-0.2); BILIRUBIN,TOTAL 0.3 MG/DL (0.2-1.0); BLOOD UREA NITROGEN 23 MG/DL (7-18); CALCIUM LEVEL 9.3 MG/DL (8.8-10.2); CARBON DIOXIDE LEVEL 25 MEQ/L (21-32); CHLORIDE LEVEL 102 MEQ/L (98-107); GLOMERULAR FILTRATION RATE > 60.0 (>39); GLUCOSE, FASTING 130 MG/DL (70-100); LIPASE 296 U/L (73-393); SODIUM LEVEL 134 MEQ/L (136-145); TOTAL PROTEIN 6.9 GM/DL (6.4-8.2)
[2022-01-11 08:49] LABS: MB/CK RELATIVE INDEX 2.38 (< OR =4)
[2022-01-11] MEDS ORDERED: SUCR1SS PO (09:57)
[2022-01-11 10:12] VITALS: BP 161/73
== END 2022-01-11 10:15 | disposition home or self-care (01) ==
LOC: M ED 06:37
DX: K21.9 Gastro-esophageal reflux disease without esophagitis (principal); Z88.1 Allergy status to other antibiotic agents; Z88.2 Allergy status to sulfonamides; Z91.013 Allergy to seafood

== ENCOUNTER → 2022-04-07 | Outpatient (REF) | payer MEDICARE ==
[~2022-04-07] MED LIST changes: +CLOP75TA99 PO; -PLAV1TAB2 PO; +SUCR1SS PO
== END ==
LOC: M LAB REF 16:58
PROVIDERS: ATTEND Family Medicine
DX: H10.021 Other mucopurulent conjunctivitis, right eye (principal)

== ENCOUNTER → 2022-05-03 | Outpatient (CLI) | payer MEDICARE | LOC: M WHC 13:26 | PROVIDERS: ATTEND Nurse Practitioner Adult Health | DX: Z12.31 Encounter for screening mammogram for malignant neoplasm of breast (principal) ==

== ENCOUNTER → 2022-09-21 | Outpatient (CLI) | payer MEDICARE ==
[~2022-09-21] MED LIST changes: -OFLO3OPSO; +OFLO5DRO
[2022-09-21 11:31] LABS: BASO # 0.1 10^3/uL (0.0-0.2); BASO % 1.3 % (0.0-1.0); EOS # 0.1 10^3/uL (0.0-0.5); EOS % 2.5 % (0.0-3.0); HEMOGLOBIN 12.3 g/dl (12.0-15.5); LYMPH # 1.1 10^3/uL (1.5-5.0); LYMPH % 25.3 % (24.0-44.0); MEAN CORPUSCULAR HEMOGLOBIN 27.9 pg (27.0-33.0); MEAN CORPUSCULAR HGB CONC 30.8 g/dl (32.0-36.5); MEAN CORPUSCULAR VOLUME 90.7 fl (80.0-96.0); MONO # 0.5 10^3/uL (0.0-0.8); MONO % 11.6 % (2.0-8.0); NEUTROPHILS # 2.6 10^3/uL (1.5-8.5); NEUTROPHILS % 59.1 % (36.0-66.0); PLATELET COUNT, AUTOMATED 156 10^3/uL (150-450); RED BLOOD COUNT 4.41 10^6/uL (4.00-5.40); WHITE BLOOD COUNT 4.5 10^3/uL (4.0-10.0)
[2022-09-21 11:57] LABS: ALBUMIN 3.7 G/DL (3.2-5.2); ALKALINE PHOSPHATASE 85 U/L (46-116); ALT/SGPT 23 U/L (7.0-40); AST/SGOT 25 U/L (<34); BILIRUBIN,TOTAL 0.3 MG/DL (0.3-1.2); BLOOD UREA NITROGEN 23 MG/DL (9-23); CALCIUM LEVEL 9.4 MG/DL (8.3-10.6); CARBON DIOXIDE LEVEL 28 MMOL/L (20-31); CHLORIDE LEVEL 104 MMOL/L (98-107); CHOLESTEROL LEVEL 179 MG/DL (<200); CHOLESTEROL RISK RATIO 1.98 (<5); GLOMERULAR FILTRATION RATE > 60.0 (>39); GLUCOSE, FASTING 80 MG/DL (74-106); HDL CHOLESTEROL 90.3 MG/DL (>40); LDL CHOLESTEROL 76.9 MG/DL (<100); NON-HDL-C 88.7 MG/DL; POTASSIUM SERUM 4.7 MMOL/L (3.5-5.1); SODIUM LEVEL 138 MMOL/L (136-145); TOTAL PROTEIN 6.7 G/DL (5.7-8.2); TRIGLYCERIDES LEVEL 59 MG/DL (<150)
[2022-09-21 11:58] LABS: THYROID STIMULATING HORMONE 2.441 uIU/ML (0.55-4.78); TOTAL 25(OH) VITAMIN D 38.8 NG/ML (20.0-100.0)
[2022-09-21 11:59] LABS: FREE T4 1.16 NG/DL (0.89-1.76)
== END ==
LOC: M LAB 10:55
PROVIDERS: ATTEND Nurse Practitioner Adult Health
DX: E78.5 Hyperlipidemia, unspecified (principal); E03.9 Hypothyroidism, unspecified; M81.0 Age-related osteoporosis without current pathological fracture

== ENCOUNTER → 2022-10-06 | Outpatient (CLI) | payer MEDICARE | LOC: M WHC 13:03 | PROVIDERS: ATTEND Nurse Practitioner Adult Health | DX: M81.0 Age-related osteoporosis without current pathological fracture (principal) ==

== ENCOUNTER → 2023-05-18 | Outpatient (CLI) | payer MEDICARE ==
[~2023-05-18] MED LIST changes: -BIOT50004 PO; +BIOT5CAP8 PO
[2023-05-18 12:50] LABS: BASO # 0.1 10^3/uL (0.0-0.2); BASO % 1.9 % (0.0-1.0); EOS # 0.1 10^3/uL (0.0-0.5); EOS % 3.4 % (0.0-3.0); HEMATOCRIT 38.8 % (36.0-47.0); HEMOGLOBIN 12.4 g/dl (12.0-15.5); LYMPH # 1.1 10^3/uL (1.5-5.0); LYMPH % 27.5 % (24.0-44.0); MEAN CORPUSCULAR HEMOGLOBIN 28.2 pg (27.0-33.0); MEAN CORPUSCULAR VOLUME 88.2 fl (80.0-96.0); MONO # 0.6 10^3/uL (0.0-0.8); MONO % 14.8 % (2.0-8.0); NEUTROPHILS # 2.1 10^3/uL (1.5-8.5); NEUTROPHILS % 52.2 % (36.0-66.0); PLATELET COUNT, AUTOMATED 180 10^3/uL (150-450); WHITE BLOOD COUNT 4.1 10^3/uL (4.0-10.0)
[2023-05-18 13:18] LABS: ALBUMIN 3.5 G/DL (3.2-5.2); ALKALINE PHOSPHATASE 78 U/L (46-116); ALT/SGPT 21 U/L (7.0-40); AST/SGOT 20 U/L (<34); BILIRUBIN,TOTAL 0.4 MG/DL (0.3-1.2); BLOOD UREA NITROGEN 20 MG/DL (9-23); CALCIUM LEVEL 9.3 MG/DL (8.3-10.6); CARBON DIOXIDE LEVEL 31 MMOL/L (20-31); CHLORIDE LEVEL 102 MMOL/L (98-107); CHOLESTEROL LEVEL 178 MG/DL (<200); CHOLESTEROL RISK RATIO 1.91 (<5); GLOMERULAR FILTRATION RATE > 60.0 (>39); GLUCOSE, FASTING 52 MG/DL (74-106); POTASSIUM SERUM 4.2 MMOL/L (3.5-5.1); SODIUM LEVEL 135 MMOL/L (136-145); TOTAL PROTEIN 6.7 G/DL (5.7-8.2); TRIGLYCERIDES LEVEL 35 MG/DL (<150)
[2023-05-18 13:20] LABS: FREE T4 1.28 NG/DL (0.89-1.76); THYROID STIMULATING HORMONE 6.402 uIU/ML (0.55-4.78); TOTAL 25(OH) VITAMIN D 46.6 NG/ML (20.0-100.0)
== END ==
LOC: M LAB 11:55
PROVIDERS: ATTEND Nurse Practitioner Adult Health
DX: E78.5 Hyperlipidemia, unspecified (principal); E03.9 Hypothyroidism, unspecified; M81.0 Age-related osteoporosis without current pathological fracture

== ENCOUNTER → 2023-06-19 | Outpatient (CLI) | payer MEDICARE ==
[2023-06-19 14:21] LABS: BLOOD UREA NITROGEN 23 MG/DL (9-23); CREATININE FOR GFR 0.84 MG/DL (0.55-1.30); GLOMERULAR FILTRATION RATE > 60.0 (>39)
== END ==
LOC: M LAB 13:27
PROVIDERS: ATTEND Physical Medicine & Rehabilitation
DX: M47.26 Other spondylosis with radiculopathy, lumbar region (principal)

== ENCOUNTER → 2023-06-19 | Outpatient (CLI) | payer MEDICARE ==
[2023-06-19 14:25] LABS: THYROID STIMULATING HORMONE 3.056 uIU/ML (0.55-4.78)
== END ==
LOC: M LAB 13:25
PROVIDERS: ATTEND Nurse Practitioner Adult Health
DX: E03.9 Hypothyroidism, unspecified (principal)

== ENCOUNTER → 2023-07-04 | Outpatient (CLI) | payer MEDICARE | LOC: M WHC 14:34 | PROVIDERS: ATTEND Family Medicine | DX: Z12.31 Encounter for screening mammogram for malignant neoplasm of breast (principal) ==

== ENCOUNTER → 2023-07-07 | Outpatient (CLI) | payer MEDICARE | LOC: M PLAIMG 06:43 | PROVIDERS: ATTEND Physical Medicine & Rehabilitation | DX: M50.30 Other cervical disc degeneration, unspecified cervical region (principal); M47.812 Spondylosis without myelopathy or radiculopathy, cervical region ==

== ENCOUNTER → 2023-09-08 | Outpatient (CLI) | payer MEDICARE ==
[2023-09-08 12:52] LABS: BASO # 0.1 10^3/uL (0.0-0.2); BASO % 1.2 % (0.0-1.0); EOS # 0.3 10^3/uL (0.0-0.5); EOS % 4.6 % (0.0-3.0); HEMATOCRIT 37.5 % (36.0-47.0); HEMOGLOBIN 11.9 g/dl (12.0-15.5); LYMPH # 1.3 10^3/uL (1.5-5.0); LYMPH % 21.6 % (24.0-44.0); MEAN CORPUSCULAR HEMOGLOBIN 28.7 pg (27.0-33.0); MEAN CORPUSCULAR HGB CONC 31.7 g/dl (32.0-36.5); MEAN CORPUSCULAR VOLUME 90.4 fl (80.0-96.0); MONO # 0.7 10^3/uL (0.0-0.8); MONO % 11.8 % (2.0-8.0); NEUTROPHILS # 3.6 10^3/uL (1.5-8.5); NEUTROPHILS % 60.5 % (36.0-66.0); PLATELET COUNT, AUTOMATED 168 10^3/uL (150-450); RED BLOOD COUNT 4.15 10^6/uL (4.00-5.40); WHITE BLOOD COUNT 5.9 10^3/uL (4.0-10.0)
[2023-09-08 13:27] LABS: ALBUMIN 3.4 G/DL (3.2-5.2); ALKALINE PHOSPHATASE 113 U/L (46-116); ALT/SGPT 22 U/L (7.0-40); AST/SGOT 26 U/L (<34); BILIRUBIN,TOTAL 0.3 MG/DL (0.3-1.2); BLOOD UREA NITROGEN 14 MG/DL (9-23); CALCIUM LEVEL 9.1 MG/DL (8.3-10.6); CARBON DIOXIDE LEVEL 27 MMOL/L (20-31); CHLORIDE LEVEL 103 MMOL/L (98-107); CHOLESTEROL LEVEL 138 MG/DL (<200); CHOLESTEROL RISK RATIO 2.07 (<5); CREATININE FOR GFR 0.86 MG/DL (0.55-1.30); FREE T4 0.97 NG/DL (0.89-1.76); GLOMERULAR FILTRATION RATE > 60.0 (>39); GLUCOSE, FASTING 80 MG/DL (74-106); HDL CHOLESTEROL 66.6 MG/DL (>40); LDL CHOLESTEROL 59.6 MG/DL (<100); NON-HDL-C 71.4 MG/DL; POTASSIUM SERUM 4.9 MMOL/L (3.5-5.1); SODIUM LEVEL 136 MMOL/L (136-145); THYROID STIMULATING HORMONE 5.062 uIU/ML (0.55-4.78); TOTAL 25(OH) VITAMIN D 34.1 NG/ML (20.0-100.0); TOTAL PROTEIN 6.3 G/DL (5.7-8.2); TRIGLYCERIDES LEVEL 59 MG/DL (<150)
== END ==
LOC: M LAB 10:50
PROVIDERS: ATTEND Nurse Practitioner Adult Health
DX: E03.9 Hypothyroidism, unspecified (principal)

== ENCOUNTER → 2023-09-25 | Outpatient (CLI) | payer MEDICARE ==
[2023-09-25 15:35] LABS: BASO # 0.1 10^3/uL (0.0-0.2); BASO % 0.5 % (0.0-1.0); EOS # 0.2 10^3/uL (0.0-0.5); EOS % 1.5 % (0.0-3.0); HEMATOCRIT 38.6 % (36.0-47.0); HEMOGLOBIN 12.2 g/dl (12.0-15.5); LYMPH # 1.2 10^3/uL (1.5-5.0); LYMPH % 12.2 % (24.0-44.0); MEAN CORPUSCULAR HEMOGLOBIN 28.4 pg (27.0-33.0); MEAN CORPUSCULAR HGB CONC 31.6 g/dl (32.0-36.5); MONO # 0.8 10^3/uL (0.0-0.8); MONO % 8.1 % (2.0-8.0); NEUTROPHILS # 7.8 10^3/uL (1.5-8.5); NEUTROPHILS % 77.4 % (36.0-66.0); PLATELET COUNT, AUTOMATED 235 10^3/uL (150-450); RED BLOOD COUNT 4.29 10^6/uL (4.00-5.40)
[2023-09-25 16:04] LABS: LIPASE 72 U/L (12-53)
[2023-09-25 16:05] LABS: AMYLASE 86 U/L (30-118)
[2023-09-25 16:06] LABS: ALBUMIN 3.6 G/DL (3.2-5.2); ALKALINE PHOSPHATASE 119 U/L (46-116); ALT/SGPT 21 U/L (7.0-40); AST/SGOT 19 U/L (<34); BILIRUBIN,DIRECT < 0.1 MG/DL (<0.4); BILIRUBIN,TOTAL 0.3 MG/DL (0.3-1.2); BLOOD UREA NITROGEN 16 MG/DL (9-23); CALCIUM LEVEL 9.7 MG/DL (8.3-10.6); CARBON DIOXIDE LEVEL 27 MMOL/L (20-31); CHLORIDE LEVEL 104 MMOL/L (98-107); GLOMERULAR FILTRATION RATE > 60.0 (>39); GLUCOSE, FASTING 97 MG/DL (74-106); POTASSIUM SERUM 4.3 MMOL/L (3.5-5.1); SODIUM LEVEL 135 MMOL/L (136-145); TOTAL PROTEIN 6.8 G/DL (5.7-8.2)
== END ==
LOC: M PLALAB 13:56
PROVIDERS: ATTEND Physician Assistant
DX: R10.816 Epigastric abdominal tenderness (principal); R14.2 Eructation

== ENCOUNTER → 2023-10-27 | Outpatient (CLI) | payer MEDICARE ==
[2023-10-27 14:10] LABS: FREE T4 1.33 NG/DL (0.89-1.76)
[2023-10-27 14:11] LABS: THYROID STIMULATING HORMONE 1.01 uIU/ML (0.55-4.78)
== END ==
LOC: M PLALAB 10:22
PROVIDERS: ATTEND Nurse Practitioner Adult Health
DX: E03.9 Hypothyroidism, unspecified (principal)

== ENCOUNTER → 2023-11-01 | Outpatient (CLI) | payer MEDICARE ==
[~2023-11-01] MED LIST changes: +GASTROGRAFIN SOLUTION 30ML As Ordered ONE; +ISOVUE-370 76% 100ML VIAL As Ordered ONE
== END ==
LOC: M RAD 09:07
PROVIDERS: ATTEND Physician Assistant
DX: R10.816 Epigastric abdominal tenderness (principal)
CPT/HCPCS: 74177; Q9963; Q9967

== ENCOUNTER → 2024-02-14 | Outpatient (CLI) | payer MEDICARE ==
[~2024-02-14] MED LIST changes: -GASTROGRAFIN SOLUTION 30ML As Ordered ONE; -ISOVUE-370 76% 100ML VIAL As Ordered ONE; +NAPR-1450 PO; -NAPR375T5 PO
[2024-02-14 13:46] LABS: BLOOD UREA NITROGEN 17 MG/DL (9-23); CALCIUM LEVEL 9.4 MG/DL (8.3-10.6); CARBON DIOXIDE LEVEL 28 MMOL/L (20-31); CHLORIDE LEVEL 105 MMOL/L (98-107); CREATININE FOR GFR 0.82 MG/DL (0.55-1.30); GLOMERULAR FILTRATION RATE > 60.0 (>39); GLUCOSE, FASTING 78 MG/DL (74-106); POTASSIUM SERUM 4.6 MMOL/L (3.5-5.1); SODIUM LEVEL 136 MMOL/L (136-145)
[2024-02-14 13:56] LABS: TOTAL 25(OH) VITAMIN D 67.4 NG/ML (20.0-100.0)
== END ==
LOC: M PLALAB 11:17
PROVIDERS: ATTEND Nurse Practitioner Family
DX: M81.0 Age-related osteoporosis without current pathological fracture (principal)

== ENCOUNTER 2024-02-26 11:55 | Emergency (ER) | payer MEDICARE ==
[~2024-02-26] VITALS: Ht 152.4 cm; Wt 48.7 kg
[2024-02-26] MEDS ORDERED: GABA-1171 (12:15)
[2024-02-26] MEDS ORDERED: FLUO40CA (12:15)
[2024-02-26] MEDS ORDERED: LEVO88TA3 (12:15)
[2024-02-26 13:58] LABS: BASO # 0.1 10^3/uL (0.0-0.2); BASO % 0.5 % (0.0-1.0); EOS % 0.1 % (0.0-3.0); HEMATOCRIT 36.2 % (36.0-47.0); HEMOGLOBIN 11.8 g/dl (12.0-15.5); LYMPH # 1.2 10^3/uL (1.5-5.0); LYMPH % 9.5 % (24.0-44.0); MEAN CORPUSCULAR HEMOGLOBIN 27.6 pg (27.0-33.0); MEAN CORPUSCULAR HGB CONC 32.6 g/dl (32.0-36.5); MEAN CORPUSCULAR VOLUME 84.6 fl (80.0-96.0); MONO % 7.5 % (2.0-8.0); NEUTROPHILS # 10.7 10^3/uL (1.5-8.5); NEUTROPHILS % 82.1 % (36.0-66.0); PLATELET COUNT, AUTOMATED 192 10^3/uL (150-450); RED BLOOD COUNT 4.28 10^6/uL (4.00-5.40)
[2024-02-26 14:15] LABS: INR 0.94; PARTIAL THROMBOPLASTIN TIME 30.8 SECONDS (24.8-34.2); PROTHROMBIN TIME 12.9 SECONDS (12.5-14.5)
[2024-02-26 14:25] LABS: LIPASE 62 U/L (12-53)
[2024-02-26 14:27] LABS: ALBUMIN 3.6 G/DL (3.2-5.2); ALKALINE PHOSPHATASE 120 U/L (35-104); ALT/SGPT 19 U/L (7.0-40); AST/SGOT 16 U/L (<34); BILIRUBIN,DIRECT < 0.1 MG/DL (<0.4); BILIRUBIN,TOTAL 0.4 MG/DL (0.3-1.2); BLOOD UREA NITROGEN 18 MG/DL (9-23); CALCIUM LEVEL 9.3 MG/DL (8.3-10.6); CARBON DIOXIDE LEVEL 27 MMOL/L (20-31); CHLORIDE LEVEL 102 MMOL/L (98-107); CREATININE FOR GFR 0.83 MG/DL (0.55-1.30); GLOMERULAR FILTRATION RATE > 60.0 (>39); GLUCOSE, FASTING 87 MG/DL (74-106); POTASSIUM SERUM 4.5 MMOL/L (3.5-5.1); SODIUM LEVEL 134 MMOL/L (136-145); TOTAL PROTEIN 7.1 G/DL (5.7-8.2)
[2024-02-26 14:28] VITALS: BP 163/72; TEMP 97; O2SAT 97
[2024-02-26] MEDS ORDERED: CEFD300C PO (16:24)
[2024-02-26] MEDS ORDERED: PANT40TA29 PO (16:26)
== END 2024-02-26 16:37 | disposition home or self-care (01) ==
LOC: M ED 11:55
DX: N30.11 Interstitial cystitis (chronic) with hematuria (principal); K64.9 Unspecified hemorrhoids; Z87.891 Personal history of nicotine dependence; K56.41 Fecal impaction; Q44.6 Cystic disease of liver; Z90.5 Acquired absence of kidney; K31.89 Other diseases of stomach and duodenum; Z79.82 Long term (current) use of aspirin; Z79.899 Other long term (current) drug therapy; Z88.2 Allergy status to sulfonamides; Z88.5 Allergy status to narcotic agent; Z91.013 Allergy to seafood

== ENCOUNTER → 2024-03-05 | Outpatient (CLI) | payer MEDICARE ==
[~2024-03-05] MED LIST changes: +CEFD300C PO; +FLUO40CA; +GABA-1171; +LEVO88TA3
[2024-03-05 15:18] LABS: URIC ACID 3.1 MG/DL (3.1-7.8)
[2024-03-05 15:20] LABS: C REACTIVE PROTEIN QUANTITATIV < 0.40 MG/DL (<1.0)
== END ==
LOC: M PLALAB 12:30
PROVIDERS: ATTEND Nurse Practitioner Adult Health
DX: M25.50 Pain in unspecified joint (principal); N39.0 Urinary tract infection, site not specified

== ENCOUNTER → 2024-03-13 | Outpatient (POV) | payer MEDICARE ==
[~2024-03-13] MED LIST changes: +OMEP-173 PO; +PROB250C PO
== END ==
LOC: M IRPOV 13:57
PROVIDERS: ATTEND Radiology Diagnostic Radiology
DX: M51.360 Other intervertebral disc degeneration, lumbar region with discogenic back pain only (principal); M43.16 Spondylolisthesis, lumbar region; M54.2 Cervicalgia; G89.29 Other chronic pain; M47.896 Other spondylosis, lumbar region; Z79.82 Long term (current) use of aspirin; Z79.899 Other long term (current) drug therapy

== ENCOUNTER → 2024-03-19 | Outpatient (REF) | payer MEDICARE | LOC: M LAB REF 17:05 | PROVIDERS: ATTEND Nurse Practitioner Adult Health | DX: R30.0 Dysuria (principal) ==

== ENCOUNTER → 2024-05-06 | Outpatient (CLI) | payer MEDICARE | LOC: M RAD 12:55 | PROVIDERS: ATTEND Physician Assistant | DX: I65.23 Occlusion and stenosis of bilateral carotid arteries (principal) ==

== ENCOUNTER → 2024-06-05 | Outpatient (POV) | payer MEDICARE ==
[~2024-06-05] VITALS: Ht 152.4 cm; Wt 49.0 kg
[2024-06-05 15:10] VITALS: BP 156/72; O2SAT 97
== END ==
LOC: M IRPOV 14:45
PROVIDERS: ATTEND Radiology Diagnostic Radiology
DX: M43.17 Spondylolisthesis, lumbosacral region (principal); G89.29 Other chronic pain; M48.07 Spinal stenosis, lumbosacral region; Z88.1 Allergy status to other antibiotic agents; Z88.2 Allergy status to sulfonamides; Z88.5 Allergy status to narcotic agent; Z91.013 Allergy to seafood

== ENCOUNTER → 2024-06-19 | Outpatient (CLI) | payer MEDICARE | LOC: M PLAIMG 12:28 | PROVIDERS: ATTEND Radiology Diagnostic Radiology | DX: M43.16 Spondylolisthesis, lumbar region (principal) ==

== ENCOUNTER → 2024-09-03 | Outpatient (CLI) | payer MEDICARE | LOC: M RAD 13:35 | PROVIDERS: ATTEND Neurological Surgery | DX: M43.17 Spondylolisthesis, lumbosacral region (principal) ==

== ENCOUNTER → 2024-10-28 | Outpatient (CLI) | payer MEDICARE | LOC: M RAD 12:44 | PROVIDERS: ATTEND Neurological Surgery | DX: M43.17 Spondylolisthesis, lumbosacral region (principal) ==

== ENCOUNTER → 2024-12-11 | Outpatient (REF) | payer MEDICARE ==
[~2024-12-11] MED LIST changes: +ACYC200C10 PO; -ACYC200C8 PO
== END ==
LOC: M LAB REF 13:06
PROVIDERS: ATTEND Nurse Practitioner Adult Health
DX: R30.0 Dysuria (principal)

== ENCOUNTER → 2025-03-05 | Outpatient (CLI) | payer MEDICARE ==
[2025-03-05 15:10] LABS: CALCIUM LEVEL 8.9 MG/DL (8.3-10.6); CARBON DIOXIDE LEVEL 29.0 MMOL/L (20-31); CHLORIDE LEVEL 100.0 MMOL/L (98-107); CREATININE FOR GFR 0.97 MG/DL (0.55-1.30); GLOMERULAR FILTRATION RATE 59.1 (>32); POTASSIUM SERUM 4.7 MMOL/L (3.5-5.1); SODIUM LEVEL 137.0 MMOL/L (136-145)
== END ==
LOC: M PLALAB 13:23
PROVIDERS: ATTEND Nurse Practitioner Family
DX: M81.0 Age-related osteoporosis without current pathological fracture (principal)

== ENCOUNTER → 2025-04-04 | Outpatient (CLI) | payer MEDICARE ==
[2025-04-04 17:37] LABS: CALCIUM LEVEL 9.4 MG/DL (8.3-10.6); CARBON DIOXIDE LEVEL 30.0 MMOL/L (20-31); CHLORIDE LEVEL 98.0 MMOL/L (98-107); CREATININE FOR GFR 0.82 MG/DL (0.55-1.30); GLOMERULAR FILTRATION RATE 71.8 (>32); POTASSIUM SERUM 4.3 MMOL/L (3.5-5.1); SODIUM LEVEL 134.0 MMOL/L (136-145)
[2025-04-04 17:40] LABS: TOTAL 25(OH) VITAMIN D 51.4 NG/ML (20.0-100.0)
== END ==
LOC: M PLALAB 14:20
PROVIDERS: ATTEND Nurse Practitioner Family
DX: M81.0 Age-related osteoporosis without current pathological fracture (principal)

== ENCOUNTER → 2025-04-14 | Outpatient (CLI) | payer MEDICARE | LOC: M RAD 14:55 | PROVIDERS: ATTEND Physician Assistant | DX: M43.17 Spondylolisthesis, lumbosacral region (principal); Z90.5 Acquired absence of kidney; M47.815 Spondylosis without myelopathy or radiculopathy, thoracolumbar region; M47.816 Spondylosis without myelopathy or radiculopathy, lumbar region; M47.817 Spondylosis without myelopathy or radiculopathy, lumbosacral region; M48.07 Spinal stenosis, lumbosacral region; M48.061 Spinal stenosis, lumbar region without neurogenic claudication ==

== ENCOUNTER → 2025-04-15 | Outpatient (CLI) | payer MEDICARE ==
[2025-04-15 17:01] LABS: APPEARANCE, URINE CLEAR (CLEAR); BACTERIA, URINE AUTO NEGATIVE (NEGATIVE); BILIRUBIN, URINE AUTO NEGATIVE (NEGATIVE); BLOOD, URINE BLOOD NEGATIVE (NEGATIVE); GLUCOSE, URINE (UA) AUTO NEGATIVE (NEGATIVE); KETONE, URINE AUTO NEGATIVE (NEGATIVE); LEUKOCYTE ESTERASE, URINE AUTO NEGATIVE (NEGATIVE); NITRITE, URINE AUTO NEGATIVE (NEGATIVE); PROTEIN, URINE AUTO 1+ mg/dL (NEGATIVE); RBC, URINE AUTO 1 /HPF (0-3); SPECIFIC GRAVITY URINE AUTO 1.018 (1.002-1.035); SQUAMOUS EPITHELIAL CELL UR AU 0 /HPF (0-6); UROBILINOGEN, URINE AUTO 0.2 mg/dL (0.0-2.0); WBC, URINE AUTO 0 /HPF (0-3)
[2025-04-15 17:33] LABS: BASO # 0.1 10^3/uL (0.0-0.2); BASO % 0.9 % (0.0-1.0); EOS # 0.1 10^3/uL (0.0-0.5); EOS % 0.8 % (0.0-3.0); LYMPH # 1.4 10^3/uL (1.5-5.0); LYMPH % 18.5 % (24.0-44.0); MONO # 1.0 10^3/uL (0.0-0.8); MONO % 12.7 % (2.0-8.0); NEUTROPHILS # 5.1 10^3/uL (1.5-8.5); NEUTROPHILS % 66.7 % (36.0-66.0); PLATELET COUNT, AUTOMATED 237 10^3/uL (150-450)
[2025-04-15 17:55] LABS: INR 1.0
[2025-04-15 18:11] LABS: CALCIUM LEVEL 9.2 MG/DL (8.3-10.6); CARBON DIOXIDE LEVEL 28.0 MMOL/L (20-31); CHLORIDE LEVEL 103.0 MMOL/L (98-107); CREATININE FOR GFR 0.87 MG/DL (0.55-1.30); FREE T4 1.46 NG/DL (0.89-1.76); GLOMERULAR FILTRATION RATE 66.9 (>32); POTASSIUM SERUM 4.3 MMOL/L (3.5-5.1); SODIUM LEVEL 137.0 MMOL/L (136-145)
== END ==
LOC: M PLAIMG 15:28
PROVIDERS: ATTEND Nurse Practitioner Adult Health
DX: Z01.818 Encounter for other preprocedural examination (principal); E03.9 Hypothyroidism, unspecified